=== PATIENT | male | born 1985 | race Caucasian/White ===

== ENCOUNTER → 2017-10-14 01:26 | Outpatient (CLI) | payer BC, SELFPAY ==
--- NOTE | 2017-10-14 13:42 | MERGE_ITS ---
*[facility]* *[facility]* [address] [place] [address] Date of study: 10/14/2017 Transthoracic Echocardiography M-mode, complete 2D, complete spectral Doppler, and color Doppler *STUDY CONCLUSIONS* Summary: 1. Left ventricle: The cavity size was normal. Systolic function was normal. The estimated ejection fraction was 60-65%. Diastolic parameters were normal. There was no evidence of elevated ventricular filling pressure by Doppler parameters. 2. Aortic valve: There was mild regurgitation. 3. Mitral valve: There was mild regurgitation. 4. Right ventricle: The cavity size was normal. Wall thickness was normal. Systolic function was normal. 5. Right atrium: The atrium was mildly dilated. 6. Atrial septum: No defect or patent foramen ovale was identified. 7. Pulmonary arteries: Pulmonary systolic pressure was in the range of 25mm Hg to 35mm Hg. 8. Inferior vena cava: The vessel was patent and normal in size. The respirophasic diameter changes were in the normal range (greater than or equal to 50%). *PATIENT PRESENTATION* Height: 188cm ((74in) ) S/D Pressure: 124 / 71 Weight: 90.7kg ((199.6lb) ) BSA: 2.17m^2 Test start time: 01:58 PM. Test stop time: 02:47 PM. PERFORMING Unknown ORDERING Fabiana Ford REFERRING Fabiana Ford PERFORMING [facility] GROUP LEADER SEMICONDUCTOR TESTING RT Tang CardenasR)(TARA)MAGDI *PROCEDURE DATA* Procedure information: The patient was identified by two identifiers. This study was interpreted by [facility]. Pertinent images and digital data are archived for permanent storage and are available for subsequent review. No prior study was available for comparison. Study status: Routine. Transthoracic echocardiography. M-mode, complete 2D, complete spectral Doppler, and color Doppler. A Transthoracic Echocardiogram was performed. Scanning was performed from the parasternal, apical, subcostal, and suprasternal notch acoustic windows. Images were obtained using an [id number] cardiac ultrasound machine. Image quality was good. Study completion: The patient tolerated the procedure well. History: PMH: Cardiomyopathy. *CARDIAC ANATOMY* Left ventricle: The cavity size was normal. Systolic function was normal. The estimated ejection fraction was 60-65%. The tissue Doppler parameters were normal. Diastolic parameters were normal. There was no evidence of elevated ventricular filling pressure by Doppler parameters. Aortic valve: Trileaflet. Doppler: There was no stenosis. There was mild regurgitation. VTI ratio of LVOT to aortic valve: 0.82. Valve area (VTI): 3.2cm^2. Indexed valve area (VTI): 1.5cm^2/m^2. Peak velocity ratio of LVOT to aortic valve: 0.83. Valve area (Vmax): 3.3cm^2. Indexed valve area (Vmax): 1.5cm^2/m^2. Mean velocity ratio of LVOT to aortic valve: 0.69. Valve area (Vmean): 2.7cm^2. Indexed valve area (Vmean): 1.3cm^2/m^2. Mean gradient (S): 4.1mm Hg. Peak gradient (S): 6.8mm Hg. Aorta: Aortic root: The aortic root was mildly dilated. Ascending aorta: The ascending aorta was normal in size. Mitral valve: Doppler: There was no evidence for stenosis. There was mild regurgitation. Valve area by pressure half-time: 3.9cm^2. Indexed valve area by pressure half-time: 1.8cm^2/m^2. Peak gradient (D): 2.4mm Hg. Left atrium: The atrium was normal in size. Atrial septum: No defect or patent foramen ovale was identified. Right ventricle: The cavity size was normal. Wall thickness was normal. Systolic function was normal. Pulmonic valve: Doppler: There was no evidence for stenosis. There was mild regurgitation. Peak gradient (S): 2.8mm Hg. Tricuspid valve: Doppler: There was mild regurgitation. Pulmonary artery: Poorly visualized. Pulmonary systolic pressure was in the range of 25mm Hg to 35mm Hg. Right atrium: The atrium was mildly dilated. Pericardium: There was no pericardial effusion. Systemic veins: Inferior vena cava: Well visualized. The vessel was patent and normal in size. The respirophasic diameter changes were in the normal range (greater than or equal to 50%). Baseline ECG: Bradycardia. Measurements Left ventricle Value Reference LV ID, ED, PLAX 5.8 cm 3.5 - 6.0 LV ID, ES, PLAX (H) 4.1 cm 2.1 - 4.0 LV PW thickness, ED, PLAX 0.9 cm LV end-diastolic volume, 1-p A2C 149 ml LV ejection fraction, 1-p A2C 57 % LV end-diastolic volume, 1-p A4C 206 ml LV ejection fraction, 1-p A4C 62 % LV e', lateral 0.175 m/sec LV E/e', lateral 4 LV e', medial 0.096 m/sec LV E/e', medial 8 LV e', average 0.135 m/sec LV E/e', average 6 Ventricular septum Value Reference IVS thickness, ED, PLAX 0.9 cm LVOT Value Reference LVOT ID, A-P 2.2 cm LVOT area 3.9 cm^2 LVOT peak velocity, S 1.09 m/sec LVOT mean velocity, S 0.68 m/sec LVOT VTI, S 26.2 cm LVOT peak gradient, S 4.7 mm Hg LVOT mean gradient, S 2.2 mm Hg Stroke volume (SV), LVOT DP 103 ml Stroke index (SV/bsa), LVOT DP 47 ml/m^2 Aortic valve Value Reference Aortic valve peak velocity, S 1.3 m/sec Aortic valve mean velocity, S 0.97 m/sec Aortic valve VTI, S 31.8 cm Aortic mean gradient, S 4.1 mm Hg Aortic peak gradient, S 6.8 mm Hg VTI ratio, LVOT/AV 0.82 Aortic valve area, VTI 3.2 cm^2 Velocity ratio, peak, LVOT/AV 0.83 Aortic valve area, peak velocity 3.3 cm^2 Velocity ratio, mean, LVOT/AV 0.69 Aortic valve area, mean velocity 2.7 cm^2 Aortic valve area/bsa, mean velocity 1.3 cm^2/m^2 Aortic regurg velocity, ED 2.47 m/sec Aortic regurg gradient, ED 24.4 mm Hg Aorta Value Reference Aortic root ID, ED 4.1 cm Ascending aorta ID, A-P, S 3.3 cm RVOT Value Reference RVOT VTI, S 21.5 cm Left atrium Value Reference LA ID, A-P, ES 3.0 cm LA ID/bsa, A-P 1.4 cm/m^2 <=2.2 LA area, ES, A4C 21.9 cm^2 8.8 - 23.4 LA area, ES, A2C 24 cm^2 LA volume/bsa, ES, 1-p A4C 35 ml/m^2 LA volume, ES, 2-p 74 ml LA volume/bsa, ES, 2-p 34 ml/m^2 LA/aortic root ratio 0.74 Mitral valve Value Reference Mitral E-wave peak velocity 0.77 m/sec Mitral A-wave peak velocity 0.34 m/sec Mitral deceleration time 194 ms 150 - 230 Mitral pressure half-time 56 ms Mitral peak gradient, D 2.4 mm Hg Mitral E/A ratio, peak 2.28 Mitral valve area, PHT, DP 3.9 cm^2 Pulmonary veins Value Reference Pulmonary vein peak velocity, S 0.67 m/sec Pulmonary vein peak velocity, D 0.52 m/sec Pulmonary vein velocity ratio, peak, 1.29 S/D Pulmonary vein A-wave reversal peak 0.23 m/sec velocity Pulmonary vein A-wave reversal 128 ms duration Tricuspid valve Value Reference Tricuspid regurg peak velocity 2.6 m/sec Tricuspid peak RV-RA gradient 26.4 mm Hg Right atrium Value Reference RA area, ES, A4C (H) 20.9 cm^2 8.3 - 19.5 Pulmonic valve Value Reference Pulmonic peak gradient, S 2.8 mm Hg Legend: (L) and (H) bhavesh values outside specified reference range. I have personally reviewed the images and have reviewed and edited the reported findings. Electronically signed by Basilio Piña MD 10/14/2017 16:39
== END ==
PROVIDERS: PCP Family Medicine; Visit Provider Family Medicine
DX: I42.9 Cardiomyopathy, unspecified (principal)
CPT/HCPCS: 93306

== ENCOUNTER 2022-04-23 12:34 | Outpatient (REF) | payer BC, SELFPAY ==
[2022-04-23 15:06] LABS: Calculated LDL 106 mg/dL (<100); Cholesterol 165 mg/dL (<200); HDL Cholesterol 50 mg/dL (40-60); Triglyceride 46 mg/dL (<150)
== END 2022-04-23 12:35 | disposition home or self-care (01) ==
LOC: NCHCN 12:34
PROVIDERS: PCP Family Medicine; Visit Provider Family Medicine
DX: E55.9 Vitamin D deficiency, unspecified (principal); Z00.00 Encounter for general adult medical examination without abnormal findings
CPT/HCPCS: 80061

== ENCOUNTER 2022-07-30 08:28 | Emergency (ER) | payer BC, SELFPAY ==
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
[2022-07-30 08:34] VITALS: BP 128/76; PULSE 65; RESP 18; TEMP 37; O2SAT 100
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
== END 2022-07-30 09:31 | disposition home or self-care (01) ==
PROVIDERS: Emergency Provider Physician Assistant; PCP Family Medicine
DX: S20.219A Contusion of unspecified front wall of thorax, initial encounter (principal); V19.3XXA Pedal cyclist (driver) (passenger) injured in unspecified nontraffic accident, initial encounter
CPT/HCPCS: 99283; 71046

== ENCOUNTER 2022-11-05 09:30 | Outpatient (REF) | payer BC, SELFPAY ==
[2022-11-05 16:06] LABS: Abs Immature Grans 0.02 10^3/uL (0.0-0.06); Absolute Basophil Count 0.03 10^3/uL (0.0-0.2); Absolute Eosinophil Count 0.15 10^3/uL (0.0-0.7); Absolute Monocyte Count 0.78 10^3/uL (0.1-0.8); Absolute Neutrophil Count 5.77 10^3/uL (1.2-6.7); Basophils % 0.4; Eosinophils % 1.8; HCT 42.2 % (40.0-50.0); HGB 14.1 g/dL (13.5-17.5); Immature Grans % 0.2; Lymphocytes % 21.1; MCH 28.4 pg (27.0-33.0); MCHC 33.4 % (32.0-36.0); MCV 85 fL (80-95); Monocytes % 9.1; Neutrophils % 67.4; Platelet Count 129 10^3/uL (130-400); RBC 4.97 10^6/uL (4.36-5.78); RDW-SD 36.9 fL; WBC 8.55 10^3/uL (4.4-10.8)
[2022-11-05 16:44] LABS: C-Reactive Protein 0.29 mg/dL (0.0-0.3); Uric Acid 5.1 mg/dL (3.5-7.2)
[2022-11-06 10:58] LABS: Lyme Ab w Rflx to Lyme Confirm Negative (Negative)
== END 2022-11-05 09:31 | disposition home or self-care (01) ==
LOC: LBN 09:30
PROVIDERS: PCP Family Medicine; Visit Provider Nurse Practitioner Family
DX: M25.522 Pain in left elbow (principal); W57.XXXA Bitten or stung by nonvenomous insect and other nonvenomous arthropods, initial encounter
CPT/HCPCS: 84550; 85025; 86140; 86618

== ENCOUNTER 2023-11-12 15:25 | Outpatient (CLI) | payer BC, SELFPAY ==
--- NOTE | 2023-11-12 09:36 | DI.RAD_ITS ---
Exam(s) XR HIP RT COMPLETE AP PELVIS XR STANDING ALIGNMENT EXAM: XR HIP RT COMPLETE AP PELVIS and XR standing alignment CLINICAL HISTORY: right hip pain. TECHNIQUE: 2D digital imaging was performed. Seven images were obtained. COMPARISON: No priors for comparison. FINDINGS: BONES: The right hip joint is well maintained. Calcifications are seen in the soft tissues adjacent to both greater trochanters which have a benign appearance. There are 2 tiny well corticated chronic appearing densities adjacent to the superior right acetabulum. The sacroiliac joints and symphysis pubis are unremarkable. Note is made of multipartite patella bilaterally. These are normal variants . The knees are otherwise well maintained. The ankles are well maintained.There is no significant l eg length discrepancy. SOFT TISSUE: Normal. IMPRESSION: 1. Soft tissue calcifications adjacent to the hips bilaterally as described above. The joint spaces are otherwise well maintained. 2. The knees are well maintained. 3. No significant leg length discrepancy. DATA REPOSITORY: RADIATION DOSE DELIVERED:
== END 2023-11-12 15:26 | disposition home or self-care (01) ==
LOC: DIORS 15:25
PROVIDERS: PCP Family Medicine; Visit Provider Student in an Organized Health Care Education/Training Program
DX: M25.851 Other specified joint disorders, right hip (principal)
CPT/HCPCS: 73502; 77073

== ENCOUNTER 2023-12-31 01:59 | Outpatient (CLI) | payer BC, SELFPAY ==
[2023-12-31 16:13] LABS: Abs Immature Grans 0.04 10^3/uL (0.0-0.06); Absolute Basophil Count 0.03 10^3/uL (0.0-0.2); Absolute Eosinophil Count 0.08 10^3/uL (0.0-0.7); Absolute Lymphocyte Count 1.61 10^3/uL (1.2-3.4); Absolute Monocyte Count 0.55 10^3/uL (0.1-0.8); Basophils % 0.3 %; Eosinophils % 0.9 %; HCT 42.2 % (40.0-50.0); HGB 14.1 g/dL (13.5-17.5); Immature Grans % 0.4 %; Lymphocytes % 18.1 %; MCH 28.5 pg (27.0-33.0); MCHC 33.4 % (32.0-36.0); MCV 85 fL (80-95); MPV 10.8 fL (8.0-11.0); Monocytes % 6.2 %; Neutrophils % 74.1 %; Platelet Count 129 10^3/uL (130-400); RBC 4.94 10^6/uL (4.36-5.78); RDW 11.8 % (11.8-14.1); RDW-SD 36.3 fL; WBC 8.91 10^3/uL (4.4-10.8)
[2023-12-31 17:40] LABS: ALT 19 U/L (16-63); AST 28 U/L (15-37); Albumin 4.3 g/dL (3.4-5.0); Alkaline Phosphatase 63 U/L (46-116); Anion Gap 10.6 mmol/L (3-11); BUN 22 mg/dL (7-18); Bilirubin, Total 1.17 mg/dL (0.2-1.0); CO2 28.4 mmol/L (21.0-32.0); CREATININE 1.1 mg/dL (0.70-1.30); Calcium 9.5 mg/dL (8.5-10.1); Calculated LDL 113 mg/dL (<100); Chloride 103 mmol/L (98-107); Cholesterol 185 mg/dL (<200); Estimated GFR 88.12 (mL/min/1.73m2); Glucose 83 mg/dL (74-106); HDL Cholesterol 65 mg/dL (40-60); Potassium 3.7 mmol/L (3.5-5.1); Sodium 142 mmol/L (136-145); Total Protein 7.7 g/dL (6.4-8.2); Triglyceride 35 mg/dL (<150); Vitamin D 25 Total 31.8 ng/mL (30-100)
== END 2023-12-31 02:00 | disposition home or self-care (01) ==
LOC: LBO 02:00
PROVIDERS: PCP Family Medicine; Visit Provider Family Medicine
DX: Z00.00 Encounter for general adult medical examination without abnormal findings (principal)
CPT/HCPCS: 36415; 80053; 80061; 82306; 85025

== ENCOUNTER 2024-01-27 22:00 | Emergency (ER) | payer BC, SELFPAY ==
[2024-01-27 22:19] VITALS: BP 138/84; PULSE 55; RESP 16; TEMP 37.1; O2SAT 99
--- OUTSIDE RECORDS SUMMARY | 2024-01-27 22:19 | XMS_ITS | Encounter Summary ---
Author Organization [facility] Address [facility] [place] [address] Care Team Providers Care Laboratory Mechanic Helper Name Role Phone Fabiana Ford MD Primary Care Provider [phone] Encounter Details Date Type Department Care Team (Late st Contact Info) Description 12/14/2020 8:00 AM EDT TH Visit (TeleHealth) Plastic Surgery at [facility] [address] [place] [address] Basilio Payan MD [facility] [place] [address] Surgery follow-up Social History Tobacco Use Types Packs/Day Years Used Date Smoking Tobacco: Never Smokeless Tobacco: Never Alcohol Use Standard Drinks/Week Comments Yes 0 (1 standard drink = 0.6 oz pur e alcohol) rare, on avg 1 a month Sex and Gender Information Value Date Recorded Sex Assigned at Not on file Gender Identity Not on file Sexual Orientation Not on file documented as of this encounter Progress Notes * Geraldine Abad H - 12/14/2020 8:00 AM EDT Plastic Surgery Post Op Note (Via telehealth) Basilio Payan M.D. Reason for visit: F/U status post procedure Date of surgery: 01/18/2020 Procedure(s): residual open wound at the thumb closure with Dr. Payan Complications: None reported Reason for visit: F/U status post procedure Date of surgery: 12/10/2019 Procedure(s): left thumb,index and long finger amputation revisions with Dr. Payan. Complications: None reported ?? HPI: Pt returns to clinic for a follow up visit s/p left thumb,index and long finger amputation revisions and wound closure to left thumb via telehealth. His primary focus at today's visit is to decide whether or not he would like to proceed with excision of bothersome neuromas left thumb and indexfinger. He states that when he accidentally hits his effected fingers this can be painful and very sensitive. Examination: (From last visit) Patient is alert, conversant, comfortable, ambulating Incision: CDI, healed well, fully healed. No signs or concerns for infection. No collection, minimal erythema, no evidence of cellulitis. AROM now full of remaining digits. Tinel's at tips index/thumb in area of distal n/v bundles with small 3mm subcutaneous masses c/w neuromas Impression: Yevgeniy Bradley is a 35 y.o. male who was seen today for follow-up after the above procedure. Please see the operative note for details. Patient with painful neuromas requesting surgical intervention/excision. Discussed in detail with patient the surgical plan and technique. He would like to proceed with surgery sometime in February. Surgical Grid Surgeon: Schuyler Duration: 60 min Timeframe: February Procedure: excision of neuroma CPT: 96754 Surgical site: thumb,index Side: left Anesthesia: General Follow up: 7 Days THHF: Y/N: no H&P: no Plan: Proceed with excision of neuromas, left thumb and index finger Follow up one week post op Geraldine Wan, have performed the documentation for this encounter in the presence of and acting as a scribe for Basilio Payan MD. documented in this encounter Plan of Treatment Not on file documented as of this encounter Visit Diagnoses Diagnosis Surgery follow-up Follow-up examination, following unspecified surgery documented in this encounter Care Teams Laboratory Mechanic Helper Relationship Specialty Start Date End Date Fabiana Ford MD [address] [place] [address] PCP - General Family Medicine 12/16/19 documented as of this encounter
--- OUTSIDE RECORDS SUMMARY | 2024-01-27 22:19 | XMS_ITS | Encounter Summary ---
Author Organization [facility] Address [address] [place] [address] Care Team Providers Care Manager Molecular Name Role Phone Unavailable Primary Care Provider Unavailabl e Encounter Details Date Type Department Care Team (Late st Contact Info) Description 01/05/2006 Office Visit [facility] [address] [place] [address] Emiliano Acevedo MD [address] [place], [place] [id number] Social History Tobacco Use Types Packs/Day Years Used Date Smoking Tobacco: Never Assessed Sex and Gender Information Value Date Recorded Sex Assigned at Not on file Legal Sex Male 18:20 EST Gender Identity Not on file Sexual Orientation Not on file documented as of this encounter Progress Notes * Emiliano Acevedo MD - 05/04/2009 1934 EST Department - Physician Summary Registration Date/Time: 01/05/2006 8:29 Arrived- By private vehicle. HISTORY OF PRESENT ILLNESS Chief Complaint: JAW PAIN. This started yesterday and is still present. It was abrupt in onset. Pain described as mild. He has had jaw pain (tightness, unable to fully open without pain. Feels like it is catching). No sore throat, mouth sores, nasal discharge or congestion or ear pain. No toothache, swollen jaw or face or facial pain. (Pt was eating cereal yesterday when jaw locked up while opening mouth. Since that time has had jaw tightness with inablility to fully open without pain. No fever. Pt was vaccinated as a child and thinks his dT is up to date. No trauma. Pt has no pain as long as he does not open mouth, Pt has a hx of jaw cracking. No sore throator difficulty swallowing. No other muscle twitching). The patient has had similar symptoms many times previously. These were milder. The patient was seen recently in the office (prescribed ibuprofin 800 TID. spoke with oral surg Dr Snow and has an apt in [place]). REVIEW OF SYSTEMS No fever, eye discomfort, cough, difficulty breathing or chest pain. No nausea, diarrhea, abdominalpain, difficulty with urination or headache. No fainting episodes or vomiting. PAST HISTORY Negative. Medications: The patient's medications have been reviewed. Allergies: The patient's allergies have been reviewed. SOCIAL HISTORY Nonsmoker. No alcohol use. ADDITIONAL NOTES The nursing notes have been reviewed. PHYSICAL EXAM Appearance: Alert. No acute distress. Head: Normal external inspection. Eyes: Pupils equal, round and reactive to light. Conjunctivae andeyelids normal. ENT: Mild trismus present. Pharynx normal. Lips normal. Gums normal. ( No sublingual masses or fullness, uvula midline. ). No mouth ulcerations, tonsillar exudate, peritonsillar mass, muffled or hoarse voice or drooling. Neck: Normal inspection. Trachea midline. No adenopathy. Thyroid normal. Neck supple. CVS: Normal heart rate and rhythm. Heart sounds normal. Respiratory: No respiratory distress. Breath sounds normal. Skin: Normal skin color and turgor. No rash. PROGRESS AND PROCEDURES Disposition: Condition: good. Discharged home. CLINICAL IMPRESSION TMJ syndrome . INSTRUCTIONS Continue ibuprofin. Call your family doctor to follow up on the date of your last tetanus shot. If more than 10 years you needto be reevaluated. Soft diet. Prescription Medications: Valium 5 mg: Take 1 tablet orally every 8 hours as needed for muscle spasm. Dispense fifteen (15). No refills. Generic substitute OK. Follow-up: Follow up with your doctor Saturday if not better. (Electronically signed by Emiliano Acevedo M.D. 01/05/2006 9:37) Department - Nursing Summary Registration Date/Time: 01/05/2006 8:29 TRIAGE Initial Assessment Triage time 08:31 . Acuity: LEVEL 3. BP: 159 / 79. HR: 76. RR: 16. Temp: 36.4 C (tympanic). --832 Ariadna Marvin R.N. Medications ( ibuprofen). --832 Ariadna Marvin R.N. Allergies No known drug allergies. --08 Ariadna Marvin R.N. History Chief Complaint: ( jaw locked up 2 days ago with painful movement and stiffness). Pain level now: 0/10. 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 PAST HX: ( fx right leg in past). SOCIAL HX: Nonsmoker. No alcohol use. No report of abuse. Historian: patient. Arrived by private vehicle. --832 Ariadna Marvin R.N. Interventions To room. --08 Ariadna Marvin R.N. NURSING PROGRESS NOTES Progress Patient identifiers checked. Call light placed in reach. Bed placed in lowest position. Brakes of bed on. --832 Ariadna Marvin R.N. DISPOSITION / DISCHARGE Discharge instructions reviewed with the patient. Reviewed medication. Patient verbalized understanding. Written instructions provided in [place]. The patient was discharged home. The patient left the Emergency Department ambulatory and via private vehicle. --09 Nando Lui R.N., L.P.N. Locked/Released at 01/05/2006 9:00 by Jessica Treviño L.P.N. documented in this encounter Plan of Treatment Not on file documented as of this encounter Visit Diagnoses Not on filedocumented in this encounter
--- OUTSIDE RECORDS SUMMARY | 2024-01-27 22:19 | XMS_ITS | Encounter Summary ---
Author Organization [facility] [place] [address] Care Team Providers Care Custodial Maintenance Worker Name Role Phone Fabiana Ford MD Primary Care Provider [phone] Reason for Visit * Auth/Cert Specialty Diagnoses / Procedures Referred By Contac t Referred To Contact Diagnoses wound Procedures PRO ADJ TISS XFER HEAD, FAC, HAND 10.1-30 ADJ.TISSUE TRANSFER, REARRANGEMENT, 10.1 TO 30 SQ.CM, HANDS (WRVU 10.83) Referral ID Status Reason Start Date Expiration Date Visits Re quested Visits Authorized [id number] 1 1 Encounter Details Date Type Department Care Team (Late st Contact Info) Description 01/18/2020 1:11 PM EST Anesthesia Event [facility] [address] Boris Thompson DO [facility] [place] [address] Darwin Borjas MD [facility] [place] [address] Anesthesia Record Procedure Summary Procedure Name Responsible Anesthesiologist Anesthesia Start Time Anesthesia Stop Time ADJ.TISSUE TRANSFER, REARRANGEMENT, 10.1 TO 30 SQ.CM, HANDS (WRVU 10.83) (Left: Hand) Boris Thompson DO 01/18/20 1311 01/18/20 1404 Events Date Time Event Comment 01/18/2020 1302 1311 Start 1313 AN Verify 1313 An Start Data 1315 An Induction 1317 An Intubation 1318 Anesthesia Ready 1324 Procedure Start 1400 an stop data 1403 Recovery or ICU Handoff Odalis ent care was transferred to the destination unit staff after review of the patient's medical history, current anesthetic/surgical status and plan, according to the Provider Handoff Checklist. 1404 Stop Meds Name Total Propofol 200 mg Propofol INF 159.41 mg fentaNYL 100 mcg Midazolam 2 mg IV Lidocaine 60 mg Dexamethasone 8 mg Ondansetron 8 mg ceFAZolin 2 g ketorolac (Toradol) (30 mg/mL) injection 30 mg lactated ringers infusion 900 mL * Agents Name O2 Air N2O Sevoflurane (et) * Blood No blood administrations on file. Lines, Drains, and Airways Type Details Placement Removal Supraglottic Mask Ventilation: Ea sy (1); LMA Type: iGel; LMA Size: 4; Inserted by: SHAUN 01/18/20 1322 by Carolyn Spence CRNA (RETIRED) Peripheral IV Line - Single Lumen 12/10/19; 1607; median cubital vein (antecubital fossa), right; [id number] catheter system; 22 gauge; 12/14/20 (LDA Cleanup utility RA#[id number]); 1650 (LDA Cleanup utility RA#[id number]) 12/10/19 1607 by Elizabeth Morales RN 12/14/20 1650 by Bebo Silva Incision 12/10/19; 1845; hand (first, second and third finger, ); 11/06/21 (LDA cleanup utility RA#[id number]); 1715 (LDA cleanup utility RA#[id number]) 12/10/19 1845 by Bisi Lombardi RN 11/06/21 1715 by Amna Torres (RETIRED) Peripheral IV Line - Single Lumen 01/18/20; 1306; metacarpal vein (top of hand), right; 22 gauge, 1 in length; Carolyn Lira CRNA; intradermal injection, distraction, tolerated well; 2; Location1: (select this item first), metacarpal vein (top of hand), right, basilic vein (medial side of arm), right; 01/18/20; 1444 01/18/20 1306 by Araceli Boykin RN 01/18/20 1444 by Shayy Crabtree RN Incision 01/18/20; 1328; thum b; 11/06/21 (LDA cleanup utility RA#[id number]); 1715 (LDA cleanup utility RA#[id number]) 01/18/20 1328 by Merle Mike RN 11/06/21 1715 by Amna Torres documented in this encounter Social History Tobacco Use Types Packs/Day Years [...] on file documented as of this encounter OR Notes * Anesthesia Postprocedure Evaluation - Boris Thompson DO - 01/18/2020 5:18 PM EST Department of Anesthesiology Post-procedure Note Patient: Yevgeniy Bradley Procedure Summary Date: 01/18/20 Room / Location: [facility] [address] [place] [address] OSC Anesthesia Start: 1311 Anesthesia Stop: 140 Procedure: ADJ.TISSUE TRANSFER, REARRANGEMENT, 10.1 TO 30 SQ.CM, HANDS (WRVU 10.83) (Left Hand) Diagnosis: (wound) Surgeon: Basilio Payan MD Responsible Provider: Boris Thompson DO Anesthesia Type: general ASA Status: 2 All Anesthesia Providers: Anesthesiologist: Borsi Thompson DO TOWBOAT PILOT: Carolyn Spence CRNA Vitals Value Taken Time BP 127/77 01/18/20 1445 Temp 36 ??C (96.8 ??F) 01/18/20 1401 Pulse 62 01/18/20 1445 Resp 16 01/18/20 1401 SpO2 100 % 01/18/20 1445 Pain Level 0 01/18/20 1445 Patient Location: PACU/[facility] Level of Consciousness: Awake and Alert Pain Management: Satisfactory Analgesia PONV: None Cardiovascular Status: At Baseline and Hemodynamically Stable Respiratory Status: At Baseline and Room Air Postoperative Fluid Status: Intravascular EUvolemia Possible Anesthetic Complications: NONE apparent at time of evaluation Final Primary Anesthesia Type: General (The anesthetic type performed was the same as planned.) Comments: Boris Thompson DO * Anesthesia Preprocedure Evaluation - Boris Thompson DO - 01/18/2020 8:17 AM EST Pre-Anesthesia Evaluation for: Yevgeniy Bradley a 34 y.o. male. Procedure(s): AMPUTATION, FINGER OR THUMB, 1?? OR 2??, ANY JOINT OR PHALANX, SINGLE, W/ FLAPS (WRVU 6.48) There are no active problems to display for this patient. No past medical history on file. Past Surgical History: Procedure Laterality Date ??? PRO AMPUTATION FINGER/THUMB+FLAPS Left 12/10/2019 AMPUTATION, FINGER OR THUMB, 1?? OR 2??, ANY JOINT OR PHALANX, SINGLE, W/ FLAPS (WRVU 6.48) performed by Basilio Payan MD at [facility] Social History Tobacco Use ??? Smoking status: Never Smoker ??? Smokeless tobacco: Never Used Substance Use Topics ??? Alcohol use: Not on file Social History Substance and Sexual Activity Drug Use Not on file No Known Allergies Medications: MAR and/or home medications have been reviewed. Physical Exam: No data found. There is no height or weight on file to calculate BMI. Airway Assessment: Mallampati: I TM distance: >3 FB Neck ROM: full Cardiovascular Assessment: cardiovascular exam normal Pulmonary Assessment: pulmonary exam normal Dental Assessment: - normal exam Misc Assessment: Patient is wearing No contact(s). IV access: Peripheral line Anesthesia Plan: ASA 2 general, with a(n) intravenous induction 34 y.o. 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 Here today for Tissue Rearrangement for wound No hx of difficulty w anesthesia x nausea (hx of motion sickness) Allergies reviewed Labs reviewed NPO Status: --- Appropriately NPO Denies CP/SOB/GERD/Recent illness or exposure to COVID19 Appears and feels well today Plan GA/LMA/DENISHA/VA and IV maint/p op pacu care and IV pain control as needed w local provided by surgical service. Antiemetics including a scop patch (SE profile discussed) The patient was informed of the risks, benefits and alternatives of anesthesia. These risks included, but were not limited to, post-operative nausea and/or vomiting, pain, sore throat, dental/lip trauma, and other rare but serious complications such as major organ damage, awareness, severe allergicreactions, position-related nerve injuries, and need blood transfusions. All questions were sought and answered. Consent was signed and placed in chart. Region - Other Informed Consent: Anesthetic plan and risks discussed with patient. Plan discussed with TOWBOAT PILOT. PAT Clinic Note documented in this encounter Plan of Treatment Not on file documented as of this encounter Visit Diagnoses Not on filedocumented in this encounter Administered Medications Inactive Administered Medications - up to 3 most recent administrations Medication Order MAR Action Action Date Dose Rate Site ceFAZolin (Ancef) 1 g in dextrose 5% 50 mL infusion PRN, Starting on Sat01/18/20 at 1325, Until Sat01/18/20 at 1409, Administer over 30 Minutes, Anesthesia Intra-op Given 01/18/2020 1:25 PM EST 2 g dexamethasone (Decadron) injection Intravenous, PRN, Starting on Sat01/18/20 at 1321, Until Sat01/18/20 at 1409, Anesthesia Intra-op, Routine Given 01/18/2020 1:21 PM EST 8 mg fentaNYL 50 mcg/mL multi-dose injection Intravenous, PRN, Starting on Sat01/18/20 at 1317, Until Sat01/18/20 at 1409, Anesthesia Intra-op, Routine Given 01/18/2020 1:27 PM EST 50 mcg Given 01/18/2020 1:17 PM EST 25 mcg Given 01/18/2020 1:13 PM EST 25 mcg ketorolac (Toradol) (30 mg/mL) injection PRN, Starting on Sat01/18/20 at 1357, Until Sat01/18/20 at 1409, Anesthesia Intra-op, Routine Given 01/18/2020 1:57 PM EST 30 mg lactated ringers infusion 1,000 mL, at 100 mL/hr, Intravenous, CONTINUOUS, Starting on Sat01/18/20 at 1245, Until Sat01/18/20 at 1705, Day of Surgery (Day of Procedure) New Bag 01/18/2020 12:57 PM EST lidocaine (PF) (XYLOCAINE) 100 mg/5 mL (2 %) injection Intravenous, PRN, Starting on Sat01/18/20 at 1315, Until Sat01/18/20 at 1409, Anesthesia Intra-op, Routine Given 01/18/2020 1:15 PM EST 60 mg midazolam (PF) (VERSED) multi-dose injection Intravenous, PRN, Starting on Sat01/18/20 at 1313, Until Sat01/18/20 at 1409, Anesthesia Intra-op, Routine Given 01/18/2020 1:13 PM EST 2 mg ondansetron (ZOFRAN) injection Intravenous, PRN, Starting on Sat01/18/20 at 1357, Until Sat01/18/20 at 1409, Anesthesia Intra-op, Routine Given 01/18/2020 1:57 PM EST 8 mg propofoL (Diprivan) 10 mg/mL bolus injection (Anesthesia) Intravenous, PRN, Starting on Sat01/18/20 at 1317, Until Sat01/18/20 at 1409, Anesthesia Intra-op Given 01/18/2020 1:17 PM EST 200 mg propofoL (Diprivan) infusion Intravenous, CONTINUOUS PRN, Starting on Sat01/18/20 at 1319, Until Sat01/18/20 at 1409, Anesthesia Intra-op, Routine New Bag 01/18/2020 1:19 PM EST 50 mcg/kg/min 25.2 mL/hr documented in this encounter Care Teams Custodial Maintenance Worker Relationship Specialty Start Date End Date Fabiana Ford MD [address] [place] [address] PCP - General Family Medicine 12/16/19 documented as of this encounter
--- OUTSIDE RECORDS SUMMARY | 2024-01-27 22:19 | XMS_ITS | Encounter Summary ---
Author Organization [facility] [place] [address] Care Team Providers Care Radio Dispatcher Name Role Phone Fabiana Ford MD Primary Care Provider [phone] Encounter Details Date Type Department Care Team (Late st Contact Info) Description 06/22/2020 Telephone [place] [id number] Geraldine Abad Social History Tobacco Use Types Packs/Day Years [...] on file documented as of this encounter Miscellaneous Notes * Telephone Encounter - Geraldine Abad - 06/22/2020 1:21 PM EDT LM for patient alerting him that I have faxed over the referral to [facility]. They will reach outto him to set up a meeting to discuss finger prosthetics. 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 documented in this encounter Plan of Treatment Not on file documented as of this encounter Visit Diagnoses Not on filedocumented in this encounter Care Teams Radio Dispatcher Relationship Specialty Start Date End Date Fabiana Ford MD [address] [place] [address] PCP - General Family Medicine 12/16/19 documented as of this encounter
--- OUTSIDE RECORDS SUMMARY | 2024-01-27 22:19 | XMS_ITS | Encounter Summary ---
Author Organization [facility] [place] [address] Care Team Providers Care Adjutant General Name Role Phone Fabiana Ford MD Primary Care Provider [phone] Reason for Referral * Occupational Therapy (Routine) - Closed Specialty Diagnoses / Procedures Referred By Leonardo avalos Referred To Contact Diagnoses Traumatic amputation of finger, subsequent encounter Surgery follow-up Basilio Payan MD [facility] [place] [address] Unknown None Referral ID Status Reason Start Date Expiration Date V isits Requested Visits Authorized [id number] Closed Evaluate and Treat Non PCP 01/01/2020 06/29/2020 12 12 Encounter Details Date Type Department Care Team (Late st Contact Info) Description 01/01/2020 Orders [place] [address] Basilio Payan MD [facility] [place] [address] Traumatic amputation of finger, subsequent encounter; Surgery follow-up Social History Tobacco Use Types Packs/Day Years Used Date Smoking Tobacco: Never Smokeless Tobacco: Never Sex and Gender Information Value Date Recorded Sex Assigned at Not on file Gender Identity Not on file Sexual Orientation Not on file documented as of this encounter Plan of Treatment Scheduled Referrals Name Type Priority Associated Diagnoses Order Schedule Referral to Occupational Therapy Outpatient Referral Routine Traumatic amputation of finger, subsequent encounter Surgery follow-up Ordered: 01/01/2020 documented as of this encounter Visit Diagnoses Diagnosis Traumatic amputation of finger, subsequent encounter Surgery follow-up Follow-up examination, following unspecified surgery documented in this encounter Care Teams Adjutant General Relationship Specialty Start Date End Date Fabiana Ford MD [address] [place] [address] PCP - General Family Medicine 12/16/19 documented as of this encounter
--- OUTSIDE RECORDS SUMMARY | 2024-01-27 22:19 | XMS_ITS | Encounter Summary ---
Author Organization [facility] [place] [address] Care Team Providers Care Tutoring Manager Name Role Phone None Primary Care Provider Unavailabl e Encounter Details Date Type Department Care Team (Latest Contact Info) Description 12/10/2019 3:33 PM EDT - 12/10/2019 9:55 PM EDT Hospital [place] [id number] Basilio Payan MD [facility] [place] [address] Discharge Disposition: Home Social History Tobacco Use Types Packs/Day Years Used Date Smoking Tobacco: Never Assessed Sex and Gender Information Value Date Recorded Sex Assigned at Not on file Gender Identity Not on file Sexual Orientation Not on file documented as of this encounter Last Filed Vital Signs Vital Sign Reading Time Taken Comments Blood Pressure 131/84 12/10/2019 9:00 PM EDT Pulse 54 12/10/2019 9:00 PM EDT Temperature 36.3 ??C (97.3 ??F) 12/10/2019 9:00 PM ED T Respiratory Rate 18 12/10/2019 9:00 PM EDT Oxygen Saturation 96% 12/10/2019 9:00 PM EDT Inhaled Oxygen Concentration - - Weight 86.3 kg (190 lb 3.2 oz) 12/10/2019 3:54 P M EDT Height 188 cm (6' 2) 12/10/2019 3:54 PM EDT Body Mass Index 24.42 12/10/2019 3:54 PM EDT documented in this encounter Discharge Instructions * Patient Instructions* Basilio Alberto MD - 12/10/2019 7:52 PM EDT DISCHARGE INSTRUCTIONS WOUND CARE: Keep dressing clean dry and intact until seen for your postoperative visit in clinic. You must avoid sunlight exposure to your incision(s). Do not use any over the counter ointments on the incisions postoperatively unless instructed by your provider. SHOWERING: OK to shower after surgery except your left arm. Do not submerge your surgical site under water until cleared by your provider. MEDICATIONS: You should resume your home medications. You should continue your antibiotic (Keflex) until you have completed the whole course. ACTIVITIES: Minimize contact to affected area(s). No heavy lifting until seen by MD. No driving or operating heavy machinery when on narcotics. Keep left hand elevated to decrease swelling. DIET: Regular healthy diet. DO???S AND DON???TS FOR THE NEXT 6 WEEKS: Do not drive a motor vehicle for 1-2 weeks or until you can handle the steering wheel without discomfort. Do not drive while taking your narcotic. Do not smoke or be around anyone who smokes for 2 weeks after your surgery this is because smoking delays healing and can lead to infection. Do not lift more than 5 pounds for 6 weeks. Do not participate in strenuous activities such as running or aerobics for 6 weeks. Do resume walking at a gentle pace. Protect your incisions from the sun for 6 months to 1 year. CALL MD IF: - Your incision opens up. - You have signs of infection such as: - temperature over 100.4F or 38C - redness or warmth spreading away from the incision lines after the first 48 hours - yellow pus-like or foul smelling drainage larger than dime size from the incisions - increased swelling or pain During office hours: Saturday - Saturday 8am-5pm call [phone]. On weekends or after hours call [phone] and ask the hide cooking operator to page the plastic surgery resident contact centre supervisor. PAIN MEDICATION: You were given a prescription for a narcotic medication immediately following your surgery. Narcotics are prescribed for short-term use to help treat your pain. Surgical pain requiring narcotics willusually be greatly decreased 2-3 days after surgery & should be mild to absent by 10-14 days. We will prescribe a narcotic pain reliever for no longer than 1 week following your surgery. This will be determined by your surgeon. Narcotics do not reduce inflammation and it is inflammation that is usually a major cause of pain after surgery. Narcotics have many side effects such as constipation, lightheadedness, dizziness, sedation, confusion, nausea and vomiting. Driving and the use of alcohol are not recommended while you are using narcotic pain medications. Non-steroidal anti-inflammatories (NSAIDS) such as aspirin, Aleve and ibuprofen (Advil, Motrin) aremedications that reduce pain and inflammation. If you find your pain is not adequately controlled with the prescribed dose of your narcotic pain medication, Tylenol and NSAIDS may be used immediatly after surgery with your narcotic to help alleviate the pain caused by inflammation. As you progress through your post-operative period, your pain should decrease and the use of narcotic medications should be less necessary. To reduce your chance of side effects, it is recommended that you save your narcotic medication for nighttime use and switch to NSAIDS or Acetaminophen (Tylenol) during the day. Alternative means of pain relief such as rest and relaxation, positioning, as well as decreasing stimulants such as coffee, tea, soft drinks, and nicotine may also help to alleviate pain. If you continue to experience significant pain 4-5 days after your procedure, it may be necessary to be re-evaluated by your physician. Prescription Renewals: Narcotic renewals may be requested from 8am-4pm Saturday through Saturday by calling the clinic. Due to patient safety, narcotic renewals will not be honored after hours or on weekends. It is best to make your request 2-3 days before you run out of your medication as it will takeat least 24 hours for physician approval and nurse follow-up. Note that certain prescriptions, suchas Percocet, Oxycodone, Vicodin, & Hydrocodone can not be called in to a pharmacy and must be picked up or mailed to you. If mailed to you, expect 2-5 business days prior to arrival. CONTACT INFORMATION: During office hours (Saturday through Saturday 8 am to 5 pm): Call [phone]. On weekends or after hours: Call [phone] and ask the hide cooking operator to speak to the Plastic Surgery Resident on-call. FOLLOW-UP APPOINTMENTS: You follow-up appointment has been requested by not yet scheduled. You should have an appointment in - days in plastic surgery clinic. Please call [phone] if you have not received a phone call or letter with your appointment in a timely fashion. documented in this encounter Medications at Time of Discharge Medication Sig Dispensed Refills Start Date End Date acetaminophen (Tylenol) 500 mg Tablet Take 500 mg by mouth every 6 hours as needed for Pain. ibuprofen (Advil;Motrin) 400 mg Tablet Take 400 mg by mouth every 6 hours as needed for Pain. cephALEXin (Keflex) 500 mg Capsule Take 1 capsule by mouth 4 times daily. 40 capsule 12/19/2019 12/30/2019 oxyCODONE (Roxicodone) 5 mg Tablet Take 1 tablet by mouth every 4 hours as needed for Pain. 15 tablet 12/10/2019 12/30/2019 cephALEXin (KEFLEX) 500 mg Tablet Take 1 tablet by mouth 4 times daily. Take for a total of 7 days after surgery 12 tablet 12/10/2019 12/16/2019 cephALEXin (Keflex) 500 mg Capsule Take 1 capsule by mouth 4 times daily for 7 days. 28 capsule 12/08/2019 12/15/2019 oxyCODONE (Roxicodone) 5 mg Tablet Take 1 tablet by mouth every 4 hours as needed for Pain. No driving, no alcohol 10 tablet 12/08/2019 12/16/2019 documented as of this encounter H&P Notes * Basilio Alberto MD - 12/10/2019 3:53 PM EDT Patient Name: Yevgeniy Bradley Patient Age: 34 y.o. Birthdate: 1985 Admit date: 12/10/2019 Attending Physician: Basilio Payan MD Plastic Surgery Preoperative H&P: Patient Name: Yevgeniy Bradley Patient : 1985 Today's Date: 12/10/2019 Yevgeniy Bradley is a 34 y.o. male with left hand injury including amputations to left index and longfingers at the DIPJ and distal thumb amputation who presents today for revision amputations and possible local/regional flaps for wound coverage. No changes since last seen. No past medical history on file. No past surgical history on file. No family history on file. Social History Socioeconomic History ??? Marital status: Spouse name: Not on file ??? Number of children: Not on file ??? Years of education: Not on file ??? Highest education level: Not on file Occupational History ??? Not on file Social Needs ??? Financial resource strain: Not on file ??? Food insecurity Worry: Not on file Inability: Not on file ??? Transportation needs Medical: Not on file Non-medical: Not on file Tobacco Use ??? Smoking status: Not on file Substance and Sexual Activity ??? Alcohol use: Not on file ??? Drug use: Not on file ??? Sexual activity: Not on file Lifestyle ??? Physical activity Days per week: Not on file Minutes per session: Not on file ??? Stress: Not on file Relationships ??? Social connections Talks on phone: Not on file Gets together: Not on file Attends mandaen service: Not on file Active member of club or organization: Not on file Attends meetings of clubs or organizations: Not on file Relationship status: Not on file ??? Intimate partner violence Fear of current or ex partner: Not on file Emotionally abused: Not on file Physically abused: Not on file Forced sexual activity: Not on file Other Topics Concern ??? Not on file Social History Narrative ??? Not on file No Known Allergies Review of systems: As per HPI, otherwise non-contributory. Exam: General: NAD Resp: CTAB CV: normal rate, regular rhythm A/P: Yevgeniy Bradley is a 34 y.o. male with left hand injury including amputations to left index andlong fingers at the DIPJ and distal thumb amputation who presents today for revision amputations and possible local/regional flaps for wound coverage. No changes since last seen. - Proceed to OR. The risks, benefits and indications were reviewed with the patient and there remains an indication for surgery. Consent signed. - Preoperative abx ordered - Surgical site marked Basilio Alberto MD Plastic Surgery Resident documented in this encounter Miscellaneous Notes * Op Note - Basilio Payan MD - 12/10/2019 9:55 PM EDT [facility] [place] Patient Name: Yevgeniy Bradley : [id number] MR#: [id number] Case Date: 12/10/2019 Surgeon: Surgeon(s) and Role: * Basilio Payan MD - Primary * Basilio Albetro MD - Resident Preoperative diagnosis: Amputation of left thumb, index and long fingers Postoperative diagnosis: Amputation of left thumb, index and long fingers Procedure(s) (LRB): AMPUTATION, FINGER OR THUMB, 1?? OR 2??, ANY JOINT OR PHALANX, SINGLE, W/ FLAPS (WRVU 6.48) (Left) x3 Findings: Left thumb, index, and long finger revision amputations Anesthesia: General Estimated Blood Loss: * No values recorded between 12/10/2019 6:44 PM and 12/10/2019 7:36 PM * Specimens removed during surgery: None Drains: None Surgical Closure: Primary Closure - skin incision is completely closed without any wires, jameel, drains or other devices Disposition: awakened from anesthesia, extubated and taken to the recovery room in a stable condition, having suffered no apparent untoward event. Condition: doing well without problems (Please see the Surgical Encounter Summary for any Implant and Specimen details pertinent to this patient.) HPI/Surgical Indications: Yevgeniy Bradley ( ) is a 34 y.o. male who sustained table sawamputations to the left thumb, index, and long fingers requiring revision amputation for definitiveclosure. Procedure Description: The patient was identified and marked in the preoperative holding area. We reviewed the surgical plan and he wished to proceed. We reviewed the potential risks and complications. The patinet expressed understanding of the risks and wished to proceed. ?? The patient was brought to the operating room and positioned supine on the operating table with theleft arm out. Anesthetic monitors and SCDs were applied. General anesthesia was induced and a time-out was performed. Pre-operative antibiotics were administered. A tourniquet was placed and the arm was prepped and draped in the usual sterile fashion. ?? 10 ml of 0.25% marcaine was administered as a digital block to the thumb, index, and long fingers. The fingers were all irrigated with copious amounts on saline. Attention was first brought to the index finger. All visible foreign material and devitalized tissue was removed. A finger tourniquet wasapplied. The tip of the finger including the entire nail bed and eponychial fold were amputated duri ng the trauma and did not require further removal. The distal phalanx were debrided back using a rongeur. The neurovascular bundles both radialy and ulnarly were dissected proximally and transected. The tourniquet was removed. There was no significant bleeding. The skin was then tailors for a rounded closure, and the wound was then closed using 4-0 chromic suture. The exact same steps were were performed for the long finger. Attention was then brought to the left thumb injury. All visible foreign material was removed. A finger tourniquet was applied. The tip of the finger including the entirenail bed and eponychial fold was then excised, leaving a small volar flap. The distal phalanx was mi nimally debrided back using a rongeur. The tourniquet was removed. There was no significant bleeding. The skin was tailored for a rounded closure, and the wound was then closed using 4-0 chromic suture. Bacitracin ointment and adaptic and a soft dressing was applied. The patient tolerated the procedure well. ?? Infection Bundle used? No Attestation: Case Date: 12/10/2019 I was present and I participated during the entire procedure (does not need to include opening and closing). Basilio Payan MD 12/13/2019 * Brief Op Note - Basilio Payan MD - 12/10/2019 7:48 PM EDT Brief Operative Note Patient Name: Yevgeniy Bradley : [id number] MR#: [id number] Case Date: 12/10/2019 Surgeon: Surgeon(s) and Role: * Basilio Payan MD - Primary * Basilio Alberto MD - Resident Preoperative diagnosis: Amputation of left thumb, index and long fingers Postoperative diagnosis: Amputation of left thumb, index and long fingers Procedure(s) (LRB): AMPUTATION, FINGER OR THUMB, 1?? OR 2??, ANY JOINT OR PHALANX, SINGLE, W/ FLAPS (WRVU 6.48) (Left) Anesthesia: General Findings: Left index and long finger revision amputation, left thumb wound closure Complications: None Estimated Blood Loss: 5cc Specimens removed during surgery: None Fluids: Intraprocedure Crystalloid Total None PRBCs: none (See Anesthesia Record/Report for Other Blood Products) Urine Output: (no urine output recorded) Drains: None Disposition: awakened from anesthesia, extubated and taken to the recovery room in a stable condition, having suffered no apparent untoward event. Condition: doing well without problems (Please see the Surgical Encounter Summary for any Implant and Specimen details pertinent to this patient.) Infection Bundle used? No Post-Op Plan: - Follow up in: 7-10 days with attending/Lalita/nurse - Wound Check - Suture removal: None - Dressings: remove dressings - Continue Keflex x7 days - No splint/cast needed documented in this encounter Plan of Treatment Not on file documented as of this encounter Procedures Procedure Name Priority Date/Time Associated Diagnosis Comments Amputation Finger/Thumb+Flaps (74978) Yes 12/10/2019 6:25 PM EDT Amputation of left index and long fingers AMPUTATION, FINGER OR THUMB, 1?? OR 2??, JOINT OR PHALANX, SING W/ FLAPS Routine 12/10/2019 3:41 PM EDT documented in this encounter Visit Diagnoses Not on filedocumented in this encounter Administered Medications Inactive Administered Medications - up to 3 most recent administrations Medication Order MAR Action Action Date Dose Rate Site gabapentin (Neurontin) capsule 300 mg 300 mg, Oral, ONCE, 1 dose, On Tere 12/10/19 at 1615, Administer with SIP of H2O only., Day of Surgery (Day of Procedure), Routine Given 12/10/2019 4:08 PM EDT 300 mg HYDROmorphone (DILAUDID) injection 0.2-0.4 mg 0.2-0.4 mg, Intravenous, EVERY 5 MIN PRN, Starting on Tere 12/10/19 at 1951, Until Tere 12/10/19 at 2357, Pain, Give 0.2 mg every 5 minutes PRN for mild to moderate pain (1-5) Give 0.4 mg every 5 minutes PRN for moderate to severe pain (6-10). Hold for respiratory rate less than 10 per minute. Maximum dose 4 mg over one hour. If multiple pain medications are ordered, start with hydromorphone or morphine and use fentanyl for breakthrough pain., PACU Recovery, Routine lactated ringers infusion 1,000 mL, at 100 mL/hr, Intravenous, CONTINUOUS, Starting on Tere 12/10/19 at 1615, Until Tere 12/10/19 at 2357, Day of Surgery (Day of Procedure) New Bag 12/10/2019 4:09 PM EDT 1,000 mLs 100 mL/hr lidocaine (XYLOCAINE) 10 mg/mL (1 %) injection 3 mg 3 mg (0.3 mL), Subcutaneous, ONCE PRN, 1 dose, Starting on Tere 12/10/19 at 1554, Until Tere 12/10/19 at 2357, for discomfort with PIV insertion, Day of Surgery (Day of Procedure), Routine naloxone (NARCAN) injection 0.04 mg 0.04 mg, Intravenous, EVERY 5 MIN PRN, Starting on Tere 12/10/19 at 1951, Until Tere 12/10/19 at 2357, Opioid Reversal, for respiratory rate less than 6 or unresponsive., May repeat every 5 minutes to increase respiratory rate. DO NOT exceed 0.12 mg total dose. Notify anesthesia immediately if administered., PACU Recovery, Routine ondansetron (ZOFRAN) injection 4 mg 4 mg, Intravenous, EVERY 30 MIN PRN, Starting on Tere 12/10/19 at 1951, Until Tere 12/10/19 at 2357, Nausea, May repeat 4 mg once in 30 minutes. If multiple antiemetics ordered, use ondansetron first and if ineffective use prochlorperazine second and if ineffective use promethazine, PACU Recovery Given 12/10/2019 9:07 PM EDT 4 mg prochlorperazine (COMPAZINE) injection 5 mg 5 mg, Intravenous, EVERY 30 MIN PRN, 2 doses, Starting on Tere 10 at 1951, Until Tere 12/10/19 at 2357, Nausea, May repeat 5 mg once in 30 minutes. If multiple antiemetics ordered, use ondansetron first and if ineffective use prochlorperazine second and if ineffective use promethazine, PACU Recovery, Routine sodium chloride 0.9 % (flush) flush 5-20 mL 5-20 mL, Intravenous, EVERY 1 MIN PRN, Starting on Tere 12/10/19 at 1554, Until Tere 12/10/19 at 2357, flush, Flush pertains to all indwelling lines. Flush per protocol found in the job aid using the link provided on this medication record., Day of Surgery (Day of Procedure), Routine documented in this encounter Active and Recently Administered Medications Times are shown in EDT. Scheduled Medication Order 12/08/2019 12/09/2019 12/10/2019 ceFAZolin (Ancef) 2 g in dextrose 5% 100 mL infusion (COMPLETED) 2 g, Intravenous, ONCE, 1 dose, On Tere 12/10/19 at 1615, Administer over 30 Minutes, Day of Surgery (Day of Procedure), Indication for (Active or Suspected): Prophylaxis 184 (Given - Provid er: Indio Galo CRNA) gabapentin (Neurontin) capsule 300 mg (COMPLETED) 300 mg, Oral, ONCE, 1 dose, On Tere 12/10/19 at 1615, Administer with SIP of H2O only., Day of Surgery (Day of Procedure), Routine 1608 (Given - Provid er: Elizabeth Morales RN) Continuous Medication Order 12/08/2019 12/09/2019 12/10/2019 lactated ringers infusion 1,000 mL, at 100 mL/hr, Intravenous, CONTINUOUS, Starting on Tere 10 at 1615, Until Tere 12/10/19 at 2357, Day of Surgery (Day of Procedure) 1609 (New Bag - Prov ider: Elizabeth Morales RN) PRN Medication Order 12/08/2019 12/09/2019 12/10/2019 BUpivacaine (PF) (MARCAINE) 0.25 % (2.5 mg/mL) injection (CANCELED) ONCE PRN, Starting on Tere 12/10/19 at 1856, Until Tere 12/10/19 at 2357, Intra-Operative (Intra-Procedure), Routine 1856 (Given - Provid er: Basilio Payan MD - Comment: surgical site, left hand) HYDROmorphone (DILAUDID) injection 0.2-0.4 mg 0.2-0.4 mg, Intravenous, EVERY 5 MIN PRN, Starting on Tere 10 at 1951, Until Tere 12/10/19 at 2357, Pain, Give 0.2 mg every 5 minutes PRN for mild to moderate pain (1-5) Give 0.4 mg every 5 minutes PRN for moderate to severe pain (6-10). Hold for respiratory rate less than 10 per minute. Maximum dose 4 mg over one hour. If multiple pain medications are ordered, start with hydromorphone or morphine and use fentanyl for breakthrough pain., PACU Recovery, Routine lidocaine (XYLOCAINE) 10 mg/mL (1 %) injection 3 mg 3 mg (0.3 mL), Subcutaneous, ONCE PRN, 1 dose, Starting on Tere 10 at 1554, Until Tere 12/10/19 at 2357, for discomfort with PIV insertion, Day of Surgery (Day of Procedure), Routine naloxone (NARCAN) injection 0.04 mg 0.04 mg, Intravenous, EVERY 5 MIN PRN, Starting on Tere 12/10/19 at 1951, Until Tere 12/10/19 at 2357, Opioid Reversal, for respiratory rate less than 6 or unresponsive., May repeat every 5 minutes to increase respiratory rate. DO NOT exceed 0.12 mg total dose. Notify anesthesia immediately if administered., PACU Recovery, Routine ondansetron (ZOFRAN) injection 4 mg 4 mg, Intravenous, EVERY 30 MIN PRN, Starting on Tere 10 at 1951, Until Tere 12/10/19 at 2357, Nausea, May repeat 4 mg once in 30 minutes. If multiple antiemetics ordered, use ondansetron first and if ineffective use prochlorperazine second and if ineffective use promethazine, PACU Recovery 2106 (Given - Provid er: Maribeth Valdovinos RN) prochlorperazine (COMPAZINE) injection 5 mg 5 mg, Intravenous, EVERY 30 MIN PRN, 2 doses, Starting on Tere 10 at 1951, Until Tere 12/10/19 at 2357, Nausea, May repeat 5 mg once in 30 minutes. If multiple antiemetics ordered, use ondansetron first and if ineffective use prochlorperazine second and if ineffective use promethazine, PACU Recovery, Routine sodium chloride 0.9 % (flush) flush 5-20 mL 5-20 mL, Intravenous, EVERY 1 MIN PRN, Starting on Tere 12/10/19 at 1554, Until Tere 12/10/19 at 2357, flush, Flush pertains to all indwelling lines. Flush per protocol found in the job aid using the link provided on this medication record., Day of Surgery (Day of Procedure), Routine documented in this encounter Care Teams Tutoring Manager Relationship Specialty Start Date End Date None None PCP - General 12/09/19 12/15/19 documented as of this encounter
--- OUTSIDE RECORDS SUMMARY | 2024-01-27 22:19 | XMS_ITS | Encounter Summary ---
Author Organization [facility] [place] [address] Care Team Providers Care Communication Professor Name Role Phone Fabiana Ford MD Primary Care Provider [phone] Reason for Visit * Auth/Cert Specialty Diagnoses / Procedures Referred By Contac t Referred To Contact Diagnoses wound Procedures PRO ADJ TISS XFER HEAD, FAC, HAND 10.1-30 ADJ.TISSUE TRANSFER, REARRANGEMENT, 10.1 TO 30 SQ.CM, HANDS (WRVU 10.83) Referral ID Status Reason Start Date Expiration Date Visits Re quested Visits Authorized [id number] 1 1 Encounter Details Date Type Department Care Team (Latest Contact Info) Description 01/18/2020 12:21 PM EST - 01/18/2020 3:00 PM [facility] Hospital Encounter [place] [address] Basilio Payan MD [facility] [place] [address] Discharge Disposition: Home Social History Tobacco Use [...] Sign Reading Time Taken Comments Blood Pressure 127/77 01/18/2020 2:45 PM EST Pulse 62 01/18/2020 2:45 PM EST Temperature 36 ??C (96.8 ??F) 01/18/2020 2:01 PM EST Respiratory Rate 16 01/18/2020 2:01 PM EST Oxygen Saturation 100% 01/18/2020 2:45 PM EST Inhaled Oxygen Concentration - - Weight 83.9 kg (185 lb) 01/18/2020 12:33 PM EST Height 188 cm (6' 2) 01/18/2020 12:33 PM EST Body Mass Index 23.75 01/18/2020 12:33 PM EST documented in this encounter Discharge Instructions * Discharge Instructions* Araceli Boykin RN - 01/18/2020 1:06 PM EST General Anesthesia Discharge Instructions Go home and rest. You may be sleepy for several hours. Take it easy as sudden position changes may cause nausea and/or dizziness. Use caution on stairs. Follow a light to regular diet as tolerated today. If nausea occurs, start with clear liquids, and progress slowly to a regular diet. Do not drive, operate machinery, drink alcoholic beverages or make any legal decisions after havinggeneral anesthesia. The medications given change your reaction time and alter your judgement. IV site -- slight redness is normal, you can use warm compresses. If tenderness and redness increases or foul drainage occurs, please contact your M.D. Patients who have had endotracheal tubes/LMA (tubes used by the anesthesia staff to ensure a safe airway during your operation) may have a sore throat. This is normal and cold liquids or soothing lozenges will help ease this discomfort. Narcotic pain medications can cause constipation, please ask the surgeons office what they recommend for prevention of this. Some non-pharmaceutical means of constipation prevention include increasing intake of fluids, eating more fruits and vegetables as well as fruit juices. If you are uncomfortable and/or unable to urinate within 8 hours of discharge and it is before 5 pm, call your physician. If it is after 5pm go to the closest emergency room or call the hospital pinked edge sewing machine operator at [phone] and ask for physician commercial or institutional cleaner covering for your physician. Questions or problems after 5pm or on a weekend: Call the [facility] pinked edge sewing machine operator at and ask for the physician commercial or institutional cleaner covering for your doctor. At 1:00 pm you received 1000 mg of acetaminophen- Your next dose should not be taken before 8 hourshave passed. Next dose not before- 9:00 pm You should not take more than a total of 3000 mg of acetaminophen in a 24 hour period. * Patient Instructions* Toshia [place] MD - 01/18/2020 1:05 PM EST DISCHARGE INSTRUCTIONS WOUND CARE: Keep dressing clean dry and intact. You may take off your dressing 48 hours after your surgery. You must avoid sunlight exposure to your incision(s). Do not use any over the counter ointments on the incisions postoperatively unless instructed by your provider. SHOWERING: OK to shower two days after surgery and get incisions wet. Gently wash your incisions with soap andwater. Pat dry with a clean towel. Do not submerge your surgical site under water until cleared by your provider. MEDICATIONS: You should resume your home medications. You do not need any antibiotics. ACTIVITIES: Minimize contact to affected area(s). No heavy lifting until seen by MD. No driving or operating heavy machinery when on narcotics. Keep left hand/arm elevated to decrease swelling. DIET: Regular healthy [...] larger than dime size from the incisions or drainage sites - increased swelling or pain - You notice localized swelling this could be a collection of fluid under the skin at or near the incision site. During office hours: Saturday - Saturday 8am-5pm call [phone]. On weekends or after hours call [phone] and ask the pinked edge sewing machine operator to page the plastic surgery resident commercial or institutional cleaner. PAIN MEDICATION: You were given a prescription [...] prescribed dose of your narcotic pain medication, NSAIDS may be used 48 hours after surgery with your narcotic to help [...] Saturday 8 am to 5 pm): Call [phone]. On weekends or after hours: Call [phone] and ask the pinked edge sewing machine operator to speak to the Plastic Surgery Resident on-call. FOLLOW-UP APPOINTMENTS: You follow-up appointment has been requested by not yet scheduled. You should have an appointment in 1 week. Please call [phone] if you have not received a phone call or letter with your appointment in a timely fashion. Your follow-up has been scheduled: Future Appointments Date Time Provider Department Center 01/27/2020 2:00 PM Basilio Payan MD [facility] documented in this encounter Medications at Time of Discharge Medication Sig Dispensed Refills Start Date End Date acetaminophen (Tylenol) 500 mg Tablet Take 500 mg by mouth every 6 hours as needed for Pain. ibuprofen (Advil;Motrin) 400 mg Tablet Take 400 mg by mouth every 6 hours as needed for Pain. oxyCODONE (Roxicodone) 5 mg Tablet Take 1 tablet by mouth every 4 hours as needed for Pain. 10 tablet 01/18/2020 01/27/2020 documented as of this encounter Progress Notes * Shayy Crabtree RN - 01/18/2020 2:54 PM EST Discharge instructions and medications reviewed with patient and escort. All questions answered andwritten copy sent home with patient. Patient ambulated to car for discharge accompanied by [facility] staff member. * Shayy Crabtree RN - 01/18/2020 2:35 PM EST Discharge instructions and medications reviewed with patient and Shweta. All questions answeredand written copy sent home with patient. * Ariadna Cedeño RN - 01/15/2020 2:04 PM EST During this call the patient was questioned regarding travel outside of [place] states, fever, cough, SOB or other illness in the last 14 days. Patient also questioned regarding any exposure to aCOVID positive person, a person awaiting results from testing or a person in quarantine.Patient denies any positive responses to the above questions for themselves or their escort for the day of procedure. No large gatherings. Patient informed of procedure to be followed upon arrival to the [facility]. That being, COVID questions will be asked again, temperature will be taken, patient and caregiver/personal driver will be given a mask to wear the entire time they are in the [facility] building. * Mone Hyatt RN - 01/12/2020 4:55 PM EST During this call the patient was questioned regarding travel outside of [place], fever, cough, SOB or other illness in the last 14 days. Patient also questioned regarding any exposure to aCOVID positive person, a person awaiting results from testing or a person in quarantine.Patient denies any positive responses to the above questions for themselves or their escort for the day of procedure. Patient informed of procedure to be followed upon arrival to the [facility]. That being, COVID questions will be asked again, temperature will be taken, patient and caregiver/personal driver will be given a mask to wear the entire time they are in the [facility] building. documented in this encounter H&P Notes * Basilio Payan MD - 01/18/2020 1:03 PM EST Patient Name: Yevgneiy [place] Patient Age: 34 y.o. Birthdate: 1985 Admit date: 01/18/2020 Attending Physician: Basilio Payan MD Plastic Surgery H&P HPI: Yevgeniy [place] is a 34 y.o. male here for closure of Left thumb wound s/p amputation. No changes in H&P since clinic visit. History reviewed. No pertinent past medical history. Past Surgical History: Procedure Laterality Date ??? PRO AMPUTATION FINGER/THUMB+FLAPS Left 12/10/2019 AMPUTATION, FINGER OR THUMB, 1?? OR 2??, ANY JOINT OR PHALANX, SINGLE, W/ FLAPS (WRVU 6.48) performed by Basilio Payan MD at [facility] MAIN OR Social History Socioeconomic History ??? Marital status: [...] on file Tobacco Use ??? Smoking status: Never Smoker ??? Smokeless tobacco: Never Used Substance and Sexual Activity ??? Alcohol use: Yes Comment: rare, on avg 1 a month ??? Drug use: Never ??? Sexual activity: Not on file Lifestyle ??? Physical activity Days per week: Not on file Minutes per session: Not on file ??? Stress: Not on file Relationships ??? Social connections Talks on phone: Not on file Gets together: Not on file Attends sikh service: Not on file Active member of [...] ??? Not on file No Known Allergies No current facility-administered medications on file prior to encounter. Current Outpatient Medications on File Prior to Encounter Medication Sig Dispense Refill ??? acetaminophen (Tylenol) 500 mg Tablet Take 500 mg by mouth every 6 hours as needed for Pain. ??? ibuprofen (Advil;Motrin) 400 mg Tablet Take 400 mg by mouth every 6 hours as needed for Pain. Examination: BP 133/88 Pulse 56 Temp 36.7 ??C (98.1 ??F) (Temporal) Resp 18 Ht 188 cm (6' 2) Wt 83.9 kg (185 lb) SpO2 100% BMI 23.75 kg/m?? Constitutional: No acute distress CV: RRR PUL: CTA janice Abd: soft, non-tender, non-distended Left hand: thumb with 7mm dostal ulnar wound with possible nail spike, no acute infection Impression: Yevgeniy [place] 34 y.o. male patient with Left thumb wound Plan: Left thumb wound closure with Mohberg flap. Risk, benefits, alternative, complications of the procedure to include anesthesia plan and recoverywere discussed with the patient and informed consent obtained. Basilio Payan MD documented in this encounter Miscellaneous Notes * Op Note - Basilio Payan MD - 01/18/2020 3:00 PM EST [facility] [place] Patient Name: Yevgeniy [place] : [id number] MR#: [id number] Case Date: 01/18/2020 Surgeon: Surgeon(s) and Role: * Basilio Payan MD - Primary * Toshia [place] MD - Resident Preoperative diagnosis: wound Postoperative diagnosis: wound Procedure(s) (LRB): ADJ.TISSUE TRANSFER, REARRANGEMENT, 10.1 TO 30 SQ.CM, HANDS (WRVU 10.83) (Left) Anesthesia: General Estimated Blood Loss: * No values recorded between 01/18/2020 1:28 PM and 01/18/2020 1:56 PM * Specimens removed during surgery: None Drains: * No LDAs found * Surgical Closure: Primary Closure - skin incision is completely closed without any wires, jameel, drains or other devices Disposition: awakened from anesthesia, extubated and taken to the recovery room in a stable condition, having suffered no apparent untoward event. Condition: doing well without problems (Please see the Surgical Encounter Summary for any Implant and Specimen details pertinent to this patient.) HPI/Surgical Indications: 34-year-old male status post amputations of the thumb, index, and long fingers with residual open wound at the thumb amputation site, here today for closure. Procedure Description: Risks, benefits, alternatives of closure of the left thumb wound with local flap was discussed withthe patient and informed consent obtained. He desired to proceed. The left thumb was marked for surgery. Patient was subsequent taken back to the operating room, placed supine operating table, and a general anesthetic was induced. Appropriate timeout procedures were performed. A tourniquet was placed in the patient's left upper arm. The remainder of the hand and arm were prepped and draped into the field in the normal sterile fashion. The hand and forearm were exsanguinated with use of Esmarch bandage and the tourniquet inflated to 250 mmHg. The margins of the wound were excised down to the distal phalanx. There is a question of residual nailbed on the ulnar aspect and this was excised witha 15 blade as well. Some small spicules of bone were removed with a rongeur. The wound was then copiously irrigated with saline solution. 2 longitudinal incisions on the radial and ulnar aspects of the thumb were then made in volar and dorsal skin flaps measuring approximately 3 x 2 cm elevating just beneath the neurovascular bundles was performed. This allowed the volar skin to be advanced and approximated to the dorsal skin without tension. At this point the tourniquet was let down. Hemostasis was assured. There was noted to be a nerve branch very close to the distal end of the volar skin flap which was excised. The skin was then approximated with 4-0 Chromic Gut suture. At the end the case the suture line was well approximated, skin flaps are warm pink and viable. Soft sterile dressingwas applied. He was subsequently extubated and delivered to PACU in stable condition. I was presentfor and performed the entire procedure with the resident. Infection Bundle used? No Attestation: Case Date: 01/18/2020 I was present and I participated during the entire procedure (does not need to include opening and closing). Basilio Payan MD 01/18/2020 * Brief Op Note - Toshia [place] MD - 01/18/2020 1:58 PM EST Brief Operative Note Patient Name: Yevgeniy [place] : [id number] MR#: [id number] Case Date: 01/18/2020 Surgeon: Surgeon(s) and Role: * Basilio Payan MD - Primary * Toshia [place] MD - Resident Preoperative diagnosis: wound Postoperative diagnosis: wound Procedure(s) (LRB): ADJ.TISSUE TRANSFER, REARRANGEMENT, 10.1 TO 30 SQ.CM, HANDS (WRVU 10.83) (Left) Anesthesia: General Findings: Distal tip necrosis s/p romeo (volar advancement) flap Complications: None Estimated Blood Loss: 1cc Specimens removed during surgery: * No orders in the log * Fluids: Intraprocedure Crystalloid Total None PRBCs: none [...] pertinent to this patient.) Infection Bundle used? N/A Post-Op Plan: - Follow up in: 7-10 days - Wound Check - Suture removal: None - Dressings: remove and replace, no splint - X-rays: no - OT coordinating appointments needed: none needed Future Appointments Date Time Provider Department Center 01/27/2020 2:00 PM Basilio Payan MD [facility] documented in this encounter Plan of Treatment Not on file documented as of this encounter Procedures Procedure Name Priority Date/Time Associated Diagnosis Comments Adj Tiss Transfer Head, Fac, Hand 10.1-30 ([id number]) Yes 01/18/2020 1:12 PM EST wound ADJ.TISSUE TRANSFER, REARRANGEMENT, 10.1 TO 30 SQ.CM, HANDS Routine 01/18/2020 12:25 PM EST documented in this encounter Visit Diagnoses Not on filedocumented in this encounter Administered Medications Inactive Administered Medications - up to 3 most recent administrations Medication Order MAR Action Action Date Dose Rate Site acetaminophen (Tylenol) tablet 1,000 mg 1,000 mg, Oral, ONCE, 1 dose, On Sat01/18/20 at 0845, Routine Given 01/18/2020 12:45 PM EST 1,000 mg lactated ringers infusion 1,000 mL, at 100 mL/hr, Intravenous, CONTINUOUS, Starting on Sat01/18/20 at 1245, Until Sat01/18/20 at 1705, Day of Surgery (Day of Procedure) New Bag 01/18/2020 12:57 PM EST lidocaine (XYLOCAINE) 10 mg/mL (1 %) injection 3 mg 3 mg (0.3 mL), Subcutaneous, ONCE PRN, 1 dose, Starting on Sat01/18/20 at 1228, Until Sat01/18/20 at 1705, for discomfort with PIV insertion, Day of Surgery (Day of Procedure), Routine sodium chloride 0.9 % (flush) flush 5-20 mL 5-20 mL, Intravenous, EVERY 1 MIN PRN, Starting on Sat01/18/20 at 1228, Until Sat01/18/20 at 1705, flush, Flush pertains to all indwelling lines. Flush per protocol found in the job aid using the link provided on this medication record., Day of Surgery (Day of Procedure), Routine documented in this encounter Active and Recently Administered Medications Times are shown in EST. Scheduled Medication Order 01/16/2020 01/17/2020 01/18/2020 acetaminophen (Tylenol) tablet 1,000 mg (COMPLETED) 1,000 mg, Oral, ONCE, 1 dose, On Sat01/18/20 at 0845, Routine 1245 (Given - Provid er: Araceli Boykin RN) Continuous Medication Order 01/16/2020 01/17/2020 01/18/2020 lactated ringers infusion 1,000 mL, at 100 mL/hr, Intravenous, CONTINUOUS, Starting on Sat01/18/20 at 1245, Until Sat01/18/20 at 1705, Day of Surgery (Day of Procedure) 1257 (New Bag - Prov ider: Carolyn Spence CRNA)1358 (Anesthesia Volume Adjustment - Provider: Carolyn Spence CRNA) PRN Medication Order 01/16/2020 01/17/2020 01/18/2020 BUpivacaine (PF) (Marcaine) 0.5 % (5 mg/mL) injection (CANCELED) ONCE PRN, Starting on Sat01/18/20 at 1337, Until Sat01/18/20 at 1705, Intra-Operative (Intra-Procedure), Routine 1337 (Given - Provid er: Basilio Payan MD - Comment: 5mL Bupivacaine 0.5% w. 5mL Lidocaine 1% & Epinephrine, for a total of 10 mL) lidocaine (XYLOCAINE) 10 mg/mL (1 %) injection 3 mg 3 mg (0.3 mL), Subcutaneous, ONCE PRN, 1 dose, Starting on Sat01/18/20 at 1228, Until Sat01/18/20 at 1705, for discomfort with PIV insertion, Day of Surgery (Day of Procedure), Routine lidocaine-EPINEPHrine 1 %-1:100,000 injection (CANCELED) ONCE PRN, Starting on Sat01/18/20 at 1338, Until Sat01/18/20 at 1705, Intra-Operative (Intra-Procedure), Routine 1338 (Given - Provid er: Basilio Payan MD - Comment: 5mL Bupivacaine 0.5% w. 5mL Lidocaine 1% & Epinephrine, for a total of 10 mL) sodium chloride 0.9 % (flush) flush 5-20 mL 5-20 mL, Intravenous, EVERY 1 MIN PRN, Starting on Sat01/18/20 at 1228, Until Sat01/18/20 at 1705, flush, Flush pertains to all indwelling lines. Flush per protocol found in the job aid using the link provided on this medication record., Day of Surgery (Day of Procedure), Routine No Frequency Medication Order 01/16/2020 01/17/2020 01/18/2020 ceFAZolin (Ancef) 2 gram/100 mL infusion PgBk 1 dose, Starting on Sat01/18/20 at 1302, Until Sat01/18/20 at 1705, Araceli Boykin: cabinet override 1315 (Due) scopolamine (TRANSDERM-SCOP) 1 mg over 3 days patch 1 dose, Starting on Sat01/18/20 at 1301, Until Sat01/18/20 at 1705, Araceli Boykin: cabinet override 1315 (Due) documented in this encounter Care Teams Communication Professor Relationship Specialty Start Date End Date Fabiana Ford MD [address] [place] [address] PCP - General Family Medicine 12/16/19 documented as of this encounter
--- OUTSIDE RECORDS SUMMARY | 2024-01-27 22:19 | XMS_ITS | Encounter Summary ---
Author Organization [facility] Address [facility] [place] [address] Care Team Providers Care Recreation Adviser Name Role Phone Fabiana Ford MD Primary Care Provider Reason for Referral * Occupational Therapy (Routine) - Closed Specialty Diagnoses / Procedures Referred By Leonardo avalos Referred To Contact Diagnoses Traumatic amputation of finger, subsequent encounter Basilio Payan MD [facility] [place] [address] Unknown None Referral ID Status Reason Start Date Expiration Date V isits Requested Visits Authorized [id number] Closed Evaluate and Treat Non DH PCP 12/30/2019 06/27/2020 12 12 Reason for Visit * Reason Comments Follow-up partial amp left angelito mb,index and long fingers Encounter Details Date Type Department Care Team (Late st Contact Info) Description 12/30/2019 10:45 AM EDT Office Visit Plastic Surgery at [facility] [address] [place] [address] Basilio Payan MD [facility] [place] [address] Traumatic amputation of finger, subsequent encounter Social History Tobacco Use Types Packs/Day Years Used Date Smoking Tobacco: Never Smokeless Tobacco: Never Sex and Gender Information Value Date Recorded Sex Assigned at Not on file Gender Identity Not on file Sexual Orientation Not on file documented as of this encounter Progress Notes * Basilio Payan MD - 12/30/2019 10:45 AM EDT Plastic Surgery Post Op Note Reason for visit: F/U status post procedure Date of surgery: 12/10/2019 Procedure(s): left thumb,index and long finger amputation revisions with Dr. Payan. Complications: None reported HPI: Pt returns to clinic for routine follow up s/p left thumb, index and long finger partial amputation revisions with wound closure. He is doing well. He states that has has a lot of sensitivity especially with his thumb at the ulnar side. He has noticed some areas of serous/yellow drainage. Overall thought, he has seen improvement with pain since his last visit. He has been applying a thin layer of Aquaphor to bothersome areas. Examination: There were no vitals taken for this visit. Patient is alert, conversant, comfortable, ambulating Left upper extremity Incisions: CDI, healing well. Granulation tissue noted on ulnar tip of thumb, all other digits healing well.. No collection, no erythema, no evidence of cellulitis. Impression: Yevgeniy [place] is a 34 y.o. male who was seen today for follow-up after the above procedure. Please see the operative note for details. Area of granulation tissue and hypersensitivity at ulnar thumb without infection. I went in detail what was achieved and the type of surgical techniquethat was involved. MNS Procedure: Debridement and thumb closure Timeframe: before 01/28/2020 Time allotted: 60 min CPT : Follow up: one week Plan: Follow up in 3 weeks Proceed with minor before 01/28/2020 Referral placed to outside OT ([place]) If you notice increasing erythema or edema please call our office to be seen soon. May wash over the areas with soapy water, pat dry, let air dry. May use your left hand as tolerated. IGeraldine, have performed the documentation for this encounter in the presence of and acting as a scribe for Basilio Payan MD. documented in this encounter Plan of Treatment Scheduled Referrals Name Type Priority Associated Diagnoses Order Schedule Referral to Occupational Therapy Outpatient Referral Routine Traumatic amputation of finger, subsequent encounter Ordered: 12/30/2019 documented as of this encounter Visit Diagnoses Diagnosis Traumatic amputation of finger, subsequent encounter documented in this encounter Care Teams Recreation Adviser Relationship Specialty Start Date End Date Fabiana Ford MD [address] [place] [address] PCP - General Family Medicine 12/16/19 documented as of this encounter
--- OUTSIDE RECORDS SUMMARY | 2024-01-27 22:19 | XMS_ITS | Encounter Summary ---
Author Organization [facility] Address [facility] [place] [address] Care Team Providers Care Orientation And Mobility Specialist Name Role Phone Fabiana Ford MD Primary Care Provider [phone] Encounter Details Date Type Department Care Team (Latest Contact Info) Description 05/31/2021 Travel Social History Tobacco Use Types Packs/Day Years [...] as of this encounter Plan of Treatment Not on file documented as of this encounter Visit Diagnoses Not on filedocumented in this encounter Care Teams Orientation And Mobility Specialist Relationship Specialty Start Date End Date Fabiana Ford MD [address] [place] [address] PCP - General Family Medicine 12/16/19 documented as of this encounter
--- OUTSIDE RECORDS SUMMARY | 2024-01-27 22:19 | XMS_ITS | Encounter Summary ---
[place] [address] Care Team Providers Care Motor And Generator Assembler Name Role Phone Fabiana Ford MD Primary Care Provider [phone] Encounter Details Date Type Department Care Team (Late st Contact Info) Description 12/31/2019 Telephone [place] [id number] Noelle Arndt Social History Tobacco Use Types Packs/Day Years [...] on filedocumented in this encounter Care Teams Motor And Generator Assembler Relationship Specialty Start Date End Date Fabiana Ford MD [address] [place] [address] PCP - General Family Medicine 12/16/19 documented as of this encounter
--- OUTSIDE RECORDS SUMMARY | 2024-01-27 22:19 | XMS_ITS | Encounter Summary ---
Author Organization [facility] Address [facility] [place] [address] Care Team Providers Care Caustic Operator Name Role Phone Fabiana Ford MD Primary Care Provider [phone] Reason for Visit * Reason Comments Follow-up left hand trauma Encounter Details Date Type Department Care Team (Late st Contact Info) Description 11/16/2020 9:00 AM EDT Office Visit Plastic Surgery at [facility] [address] [place] [address] Basilio Payan MD [facility] [place] [address] Surgery follow-up Social History Tobacco Use Types [...] Progress Notes * Basilio Payan MD - 11/16/2020 9:00 AM EDT Plastic Surgery Post Op Note Basilio Payan M.D. Reason for visit: F/U [...] amputation revisions and wound closure to left thumb. He is healing well but continues to have some hyper sensitivity as well some periods of edema. If he hits the areas just right this can cause pretty significant discomfort. He continues to wrap with coban as needed which can help. Examination: Patient is alert, conversant, comfortable, ambulating Incision: [...] Please see the operative note for details. Healing well, no signs or concerns for infection. Feeling of hypersensitivity and signs of bothersome neuromas. Discussed with patient that I could offer to proceed with revision and neuroma excisions. Patient will think about his options and will call should he decide to proceed with surgery. Cold intolerance should continue to improve over time. Plan: Follow up PRN. May consider lidocaine gels or Vaterian gel I, Geraldine Abad, have performed the documentation for this encounter in the presence of and acting as a scribe for Basilio Payan MD. documented in this encounter Plan of Treatment Not on file documented as of this encounter Visit Diagnoses Diagnosis Surgery follow-up Follow-up examination, following unspecified surgery documented in this encounter Care Teams Caustic Operator Relationship Specialty Start Date End Date Fabiana Ford MD [address] [place] [address] PCP - General Family Medicine 12/16/19 documented as of this encounter
--- OUTSIDE RECORDS SUMMARY | 2024-01-27 22:19 | XMS_ITS | Encounter Summary ---
Author Organization Formerly [facility], [facility]–1983 Address [facility] [place] [address] Care Team Providers Care Latex Fashions Designer Name Role Phone Fabiana Ford MD Primary Care Provider [phone] Encounter Details Date Type Department Care Team (Late st Contact Info) Description 02/25/2020 8:00 AM EST TH Visit (TeleHealth) [place] [address] Basilio Payan MD [facility] [place] [address] Surgery follow-up Social History Tobacco Use Types [...] Progress Notes * Basilio Payan MD - 02/25/2020 8:00 AM EST Plastic Surgery Post Op Note (Via telehealth) [...] reported ?? HPI: Pt returns to clinic via telehealth for follow up visit s/p surgical would closure, left thumb. Examination: Patient is alert, conversant, comfortable, ambulating Incision: CDI, healing well, fully healed. No signs or concerns for infection. No collection, minimal erythema, no evidence of cellulitis. AROM improving with 0-80 at MP index and long. Impression: Yevgeniy Bradley is a 35 y.o. male who was seen today for follow-up after the above procedure. Please see the operative note for details. Plan: Continue OT Careful of cold sensativity this winter. Briefly discussed sleeping trouble specifically early awakening and possible trauma related stress,consider discussing with PCP. IGeraldine, have performed the documentation for this encounter in the presence of and acting as a scribe for Basilio Payan MD. documented in this encounter Plan of Treatment Not on file documented as of this encounter Visit Diagnoses Diagnosis Surgery follow-up Follow-up examination, following unspecified surgery documented in this encounter Care Teams Latex Fashions Designer Relationship Specialty Start Date End Date Fabiana Ford MD [address] [place] [address] PCP - General Family Medicine 12/16/19 documented as of this encounter
--- OUTSIDE RECORDS SUMMARY | 2024-01-27 22:19 | XMS_ITS | Encounter Summary ---
Author Organization Formerly [facility] Address [facility] [place] [address] Care Team Providers Care Digital Business Analyst Name Role Phone Fabiana Ford MD Primary Care Provider [phone] Encounter Details Date Type Department Care Team (Late st Contact Info) Description 01/21/2024 4:40 PM EST Office Visit Dermatology at [facility] [address] [place] [address] Aleida Gamble MD [facility] DR [address] [place] [address] Granuloma annulare Social History Tobacco Use Types Packs/Day Years [...] as of this encounter Progress Notes * Aleida Gamble MD - 01/21/2024 4:40 PM EST Images from the original note were not included. DEPARTMENT OF DERMATOLOGY Medical Dermatology Clinic Provider: Aleida Gamble MD Patient's preferred name Yevgeniy Preferred contact method for results []Phone []myD-H []Letter Detailed phone message OK? Are there any other people with whom we may discuss your care? Past Medical History Date, location, treatment Melanoma N Dysplastic nevi N SCC N BCC N AKs UV Exposure & Protection Other relevant past medical history Family History Details Melanoma N NMSC N Other relevant family history Social History PRE-PROCEDURE SCREENING Details Allergy to lidocaine, epinephrine, Dermabond, chlorhexidine, or adhesives N Bleeding disorder or blood thinners N Pacemaker, defibrillator, deep brain stimulator, cochlear implant N History of Present Illness: Yevgeniy Bradley is a 38 y.o. Patient is new and self- referred to the clinic for white bumps on the knuckles. It began last summer on the left hand knuckles and then began on the right knuckles a few months ago. It can be painful if it gets bumped, but otherwise asymptomatic. Medications: Reviewed in eD-H Allergies: Reviewed in eD-H Skin Examination: Focused skin examination of the bilateral hands was normal with the exception of the findings below. Assessment/Plan #. 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 - Discussed diagnosis, etiology, typical distribution on acral surfaces, management options, and possibility of spontaneous resolution. - [place] decision not to treat unless lesions become bothersome. - Instructed patient to RTC if condition worsens; would consider ILK or potent topical steroid at that time - Patient will message via [facility] if he would like to trial topical steroids, such as triamcinolone. Figure 1 Photo(s) taken and charted with patient's verbal consent. Other: N/A RTC: PRN Scribe attestation: Glynn Campbell RN has performed the documentation for this encounter in the presence of and acting as a scribe for Aleida Gamble MD. I performed the above scribed service and agree with the accuracy of the documentation in this encounter. Reviewed and signed by: Aleida Gamble MD Dermatology [facility] Patient seen and evaluated with staff trimming press operator: Jessica Miranda MD Dermatology [facility] S * Jessica Miranda MD - 01/21/2024 4:40 PM EST I directly supervised Aleida Gamble MD in the care of this Dermatology patient in person. I saw and evaluated this patient with Aleida Gamble MD. Aleida Gamble MD presented the history and physical exam details to me, then we saw the patient together, and I confirmed these findings. I agree withdetails as written. My physical examination confirms Aleida Gamble MD's findings. The assessment and plan were formulated in discussion with me at the time of visit, and I agree with them as documented. Jessica Miranda MD Staff Automation Application Engineer Department of Dermatology [facility] documented in this encounter Plan of Treatment Not on file documented as of this encounter Visit Diagnoses Diagnosis Granuloma annulare Other specified erythematous condition documented in this encounter Care Teams Digital Business Analyst Relationship Specialty Start Date End Date Fabiana Ford MD [address] [place] [address] PCP - General Family Medicine 12/16/19 documented as of this encounter
--- OUTSIDE RECORDS SUMMARY | 2024-01-27 22:19 | XMS_ITS | Encounter Summary ---
Author Organization [facility] Address [facility] [place] [address] Care Team Providers Care Vault Cashier Name Role Phone Fabiana Ford MD Primary Care Provider [phone] Reason for Visit * Reason Comments Follow Up Surgery left index,long and thumb amputations Encounter Details Date Type Department Care Team (Late st Contact Info) Description 12/16/2019 8:15 AM EDT Office Visit Plastic Surgery at [facility] [address] [place] [address] Basilio Payan MD [facility] [place] [address] Traumatic amputation of finger, subsequent encounter Social History Tobacco Use Types Packs/Day Years Used Date Smoking Tobacco: Never Smokeless Tobacco: Never Sex and Gender Information Value Date Recorded Sex Assigned at Not on file Gender Identity Not on file Sexual Orientation Not on file documented as of this encounter Progress Notes * Geraldine Abad H - 12/16/2019 8:15 AM EDT Plastic Surgery Post Op Note Reason for visit: F/U status post procedure Date of surgery: 12/10/2019 Procedure(s): left thumb,index and long finger amputation revisions with Dr. Payan. Complications: None reported HPI: Pt returns for his first post operative follow up s/p left thumb, index and long finger partial amputation revisions with wound closure. He complains of intermediate pain mostly to the thumb. Hehas been having trouble sleeping. Examination: There were no vitals taken for this visit. Patient is alert, conversant, comfortable, ambulating Left upper extremity Incision: CDI, healing well. Some eschar present to the thumb, all other areas are healing well. No collection, no erythema, no evidence of cellulitis. Impression: Yevgeniy Bradley is a 34 y.o. male who was seen today for follow-up after the above procedure. Please see the operative note for details. Overall healing well but is experiencing nerve hypersensitivity. I reassured patient that overtime his symptoms will improve and his hypersensitivity should decrease. Discussed with patient that I would recommend proceeding with a short course of gabapentin to help with his nerve sensitivity. Sutures are dissolvable, discussed with patient that he may proceed with gentle finger movements. Not focusing on strengthening at this time. He will need to see OT in the future to help with his strengthening and nerve sensory re- eduction. We talked briefly about prosthetics. In addition, I shared with patient to expect cold sensitivity during the colder weather. Plan: Follow up in 2 weeks Prescription for Gabapentin, take at night (may take twice a day as needed) Can take Tylenol, Ibuprofen or Oxycodone to control your pain. May get the hand wet, wash over area with soapy water, pat dry, let air dry. No submerging at this time. Apply adaptic over the areas and cover with guaze Geraldine Wan, have performed the documentation for this encounter in the presence of and acting as a scribe for Basilio Payan MD. documented in this encounter Plan of Treatment Not on file documented as of this encounter Visit Diagnoses Diagnosis Traumatic amputation of finger, subsequent encounter documented in this encounter Care Teams Vault Cashier Relationship Specialty Start Date End Date Fabiana Ford MD [address] [place] [address] PCP - General Family Medicine 12/16/19 documented as of this encounter
--- OUTSIDE RECORDS SUMMARY | 2024-01-27 22:19 | XMS_ITS | Encounter Summary ---
Author Organization [facility] Address [facility] [place] [address] Care Team Providers Care Volleyball Coach Name Role Phone None Primary Care Provider Unavailabl e Encounter Details Date Type Department Care Team (Late st Contact Info) Description 12/10/2019 6:00 PM EDT - 12/10/2019 7:28 PM EDT Surgery [place] [id number] Basilio Payan MD [facility] [place] [address] AMPUTATION, FINGER OR THUMB, 1?? OR 2??, ANY JOINT OR PHALANX, SINGLE, W/ FLAPS (WRVU 6.48) Social History Tobacco Use Types Packs/Day Years Used Date Smoking Tobacco: Never Assessed Sex and Gender Information Value Date Recorded Sex Assigned at Not on file Gender Identity Not on file Sexual Orientation Not on file documented as of this encounter Last Filed Vital Signs Vital Sign Reading Time Taken Comments Blood Pressure 148/79 12/10/2019 3:54 PM EDT Pulse 54 12/10/2019 3:54 PM EDT Temperature 36.4 ??C (97.5 ??F) 12/10/2019 3:54 PM ED T Respiratory Rate 18 12/10/2019 3:54 PM EDT Oxygen Saturation 100% 12/10/2019 3:54 PM EDT Inhaled Oxygen Concentration - - [...] office hours: Saturday - Saturday 8am-5pm call [phone]. On weekends or after hours call [phone] and ask the mud tank operator to page the plastic surgery resident conversion developer. PAIN MEDICATION: You were given a prescription [...] Saturday 8 am to 5 pm): Call [phone]. On weekends or after hours: Call [phone] and ask the mud tank operator to speak to the Plastic Surgery Resident on-call. FOLLOW-UP APPOINTMENTS: You follow-up appointment has been requested by not yet scheduled. You should have an appointment in 7-10 days in plastic surgery clinic. Please call [phone] if you have not received a phone [...] file Gets together: Not on file Attends confucianist service: Not on file Active member of [...] Payan MD - 12/10/2019 9:55 PM EDT [facility] [place] Patient Name: Yevgeniy Bradley : [id number] MR#: [id number] Case Date: 12/10/2019 Surgeon: Surgeon(s) and Role: [...] Operative Note Patient Name: Yevgeniy Bradley : [id number] MR#: [id number] Case Date: 12/10/2019 Surgeon: Surgeon(s) and Role: [...] Priority Date/Time Associated Diagnosis Comments Amputation Finger/Thumb+Flaps (94766) Yes 12/10/2019 6:25 PM EDT Amputation of left index and long fingers AMPUTATION, FINGER OR THUMB, 1?? OR 2??, JOINT OR PHALANX, SING W/ FLAPS Routine 12/10/2019 3:41 PM EDT documented in this encounter Visit Diagnoses Not on filedocumented in this encounter Administered Medications Inactive Administered Medications - up to 3 most recent administrations Medication Order MAR Action Action Date Dose Rate Site BUpivacaine (PF) (MARCAINE) 0.25 % (2.5 mg/mL) injection ONCE PRN, Starting on Tere 12/10/19 at 1856, Until Tere 12/10/19 at 2357, Intra-Operative (Intra-Procedure), Routine Given 12/10/2019 6:56 PM EDT 10 mLs 20-Other (document in comment section) gabapentin (Neurontin) capsule 300 mg 300 mg, [...] MIN PRN, 2 doses, Starting on Tere 12/10/19 at 1951, Until [...] Procedure), Indication for (Active or Suspected): Prophylaxis 1840 (Given - Provid er: Indio Galo CRNA) [...] Elizabeth Morales RN) PRN Medication Order 12/08/2019 12/09/201912/10/2019 BUpivacaine (PF) (MARCAINE) 0.25 % (2.5 mg/mL) injection (CANCELED) ONCE PRN, Starting on Tere 12/10/19 at 1856, Until Tere 12/10/19 at 2357, Intra-Operative (Intra-Procedure), Routine 1856 (Given - Provid er: Basilio Payan MD - Comment: surgical site, left hand) HYDROmorphone (DILAUDID) injection 0.2-0.4 mg 0.2-0.4 mg, Intravenous, EVERY 5 MIN PRN, Starting on Etre 12/10/19 at 1951, Until Tere 12/10/19 at [...] and if ineffective use promethazine, PACU Recovery 2107 (Given - Provid er: Maribeth Valdovinos RN) prochlorperazine (COMPAZINE) injection 5 mg 5 mg, Intravenous, EVERY 30 MIN PRN, 2 doses, Starting on Tere 12/10/19 at 1951, Until [...] Routine documented in this encounter Care Teams Volleyball Coach Relationship Specialty Start Date End Date None None PCP - General 12/09/19 12/15/19 documented as of this encounter
--- OUTSIDE RECORDS SUMMARY | 2024-01-27 22:19 | XMS_ITS | Encounter Summary ---
Author Organization [facility] Address [address] [place] [address] Care Team Providers Care Heading Machine Operator Name Role Phone Unavailable Primary Care Provider Unavailabl e Encounter Details Date Type Department Care Team (Latest Contact Info) Description 01/05/2006 8:38 EDT - 01/05/2006 11:59 EDT Hospital Encounter [facility] Emergency Department - [facility] [address] [place] [address] Emergency, Default, MD Discharge Disposition: Home or Self Care Social History Tobacco Use Types Packs/Day Years Used Date Smoking Tobacco: Never Assessed Sex and Gender Information Value Date Recorded Sex Assigned at Not on file Legal Sex Male 18:20 EST Gender Identity Not on file Sexual Orientation Not on file documented as of this encounter Discharge Disposition Disposition Code Departure Means Destination Home or Self Care documented in this encounter Plan of Treatment Not on file documented as of this encounter Visit Diagnoses Not on filedocumented in this encounter
--- OUTSIDE RECORDS SUMMARY | 2024-01-27 22:19 | XMS_ITS | Encounter Summary ---
Author Organization [facility] [place] [address] Care Team Providers Care Laborer Pipeline Name Role Phone Fabiana Ford MD Primary Care Provider [phone] Encounter Details Date Type Department Care Team (Late st Contact Info) Description 12/19/2019 Tele[place] [id number] Araceli Hunt MD [facility] [place] [place] [address] Social History Tobacco Use Types Packs/Day Years [...] on filedocumented in this encounter Care Teams Laborer Pipeline Relationship Specialty Start Date End Date Fabiana Ford MD [address] [place] [address] PCP - General Family Medicine 12/16/19 documented as of this encounter
--- OUTSIDE RECORDS SUMMARY | 2024-01-27 22:19 | XMS_ITS | Encounter Summary ---
Author Organization [facility] Address [facility] [place] [address] Care Team Providers Care Firmware Developer Name Role Phone Fabiana Ford MD Primary Care Provider [phone] Reason for Visit * Reason Comments Follow Up Surgery s/p left index and t humb amputation - residual wound, possible infection Encounter Details Date Type Department Care Team (Late st Contact Info) Description 12/28/2020 3:30 PM EDT Office Visit Plastic Surgery at [address] [address] Basilio Payan MD [facility] [place] [place] [address] Surgery follow-up Social History Tobacco Use Types [...] Progress Notes * Basilio Payan MD - 12/28/2020 3:30 PM EDT Plastic Surgery Post Op Note Basilio [...] revisions and wound closure to left thumb. Here with concerns for infection. Examination: (From last visit) Patient is alert, conversant, comfortable, ambulating Thumb ulnar tip area of drainage (white, cheesy material) of what sounds to be epidermal cyst. Now pain significantly improved, no mass palpated, no erythema, no SOI, small 2mm opening with pink granulating base. Impression: Yevgeniy Bradley is a 35 y.o. male who was seen today for follow-up after the above procedure. Please see the operative note for details. No signs or concerns for active infection but did have what sounds to be formation of an epidermal cyst on the left thumb which has since drained. He does have 2mm opening to the area which should have no problem healing on its own. Plan: Follow up DEE Wan, Geraldine Abad, have performed the documentation for this encounter in the presence of and acting as a scribe for Basilio Payan MD. documented in this encounter Plan of Treatment Not on file documented as of this encounter Visit Diagnoses Diagnosis Surgery follow-up Follow-up examination, following unspecified surgery documented in this encounter Care Teams Firmware Developer Relationship Specialty Start Date End Date Fabiana Ford MD [address] [place] [address] PCP - General Family Medicine 12/16/19 documented as of this encounter
--- OUTSIDE RECORDS SUMMARY | 2024-01-27 22:19 | XMS_ITS | Encounter Summary ---
Author Organization [facility] Address [facility] [place] [address] Care Team Providers Care Loading Unit Operator Powder Charging Name Role Phone Fabiana Ford MD Primary Care Provider [phone] Reason for Visit * Reason Comments Follow Up Surgery left thumb debridmen t Encounter Details Date Type Department Care Team (Late st Contact Info) Description 01/27/2020 2:00 PM EST Office Visit Plastic Surgery at [facility] [address] [place] [address] Basilio Payan MD [facility] [place] [address] Surgery follow-up Social History Tobacco Use Types [...] Progress Notes * Geraldine Abad H - 01/27/2020 2:00 PM EST Plastic Surgery Post Op Note Reason for visit: F/U status post procedure Date of surgery: 01/18/2020 Procedure(s): residual open wound at the thumb closure with Dr. Payan Complications: None reported Reason for visit: F/U status post procedure Date of surgery: 12/10/2019 Procedure(s): left thumb,index and long finger amputation revisions with Dr. Payan. Complications: None reported ?? HPI: Pt returns to clinic for his first follow up visit s/p surgical would closure, left thumb. He is doing well. He states that has has been having some discharge from his thumb but this has since improved. Pain is under control. Examination: There were no vitals taken for this visit. Patient is alert, conversant, comfortable, ambulating Incision: CDI, healing well, small 1mm area of scabbing. No signs or concerns for infection. No collection, minimal erythema, no evidence of cellulitis. Impression: Yevgeniy Bradley is a 34 y.o. male who was seen today for follow-up after the above procedure. Please see the operative note for details. Healing well, no signs or concerns for infection. Sutures are dissolvable. Some of these could take about 3 months to dissolvable. May proceed with OT closer to home. Plan: Follow up: [address] Payan May being to slowly start bending fingers . I, Geraldine Abad, have performed the documentation for this encounter in the presence of and acting as a scribe for Basilio Payan MD. documented in this encounter Plan of Treatment Not on file documented as of this encounter Visit Diagnoses Diagnosis Surgery follow-up Follow-up examination, following unspecified surgery documented in this encounter Care Teams Loading Unit Operator Powder Charging Relationship Specialty Start Date End Date Fabiana Ford MD [address] [place] [address] PCP - General Family Medicine 12/16/19 documented as of this encounter
--- OUTSIDE RECORDS SUMMARY | 2024-01-27 22:19 | XMS_ITS | Encounter Summary ---
Author Organization [facility] Address [address] [place] [address] Care Team Providers Care Automatic Nailing Machine Operator Name Role Phone Unavailable Primary Care Provider Unavailabl e Encounter Details Date Type Department Care Team (Latest Contact Info) Description 12/29/1998 10:34 EDT - 12/29/1998 11:59 EDT Hospital Encounter [facility] [place] [address] [place] [address] Chad Sebastian MD [address] [place] [phone] Discharge Disposition: Auto Discharge Social History Tobacco Use Types Packs/Day Years Used Date Smoking Tobacco: Never Assessed Sex and Gender Information Value Date Recorded Sex Assigned at Not on file Legal Sex Male 18:20 EST Gender Identity Not on file Sexual Orientation Not on file documented as of this encounter Discharge Disposition Disposition Code Departure Means Destination Auto Discharge documented in this encounter Plan of Treatment Not on file documented as of this encounter Visit Diagnoses Not on filedocumented in this encounter
--- OUTSIDE RECORDS SUMMARY | 2024-01-27 22:19 | XMS_ITS | Encounter Summary ---
[place] [address] Care Team Providers Care Lock Tender Name Role Phone Fabiana Ford MD Primary Care Provider [phone] Encounter Details Date Type Department Care Team (Late st Contact Info) Description 12/21/2019 Telephone [place] [phone] Samia Orellana Social History Tobacco Use Types Packs/Day Years [...] on filedocumented in this encounter Care Teams Lock Tender Relationship Specialty Start Date End Date Fabiana Ford MD [address] [place] [address] PCP - General Family Medicine 12/16/19 documented as of this encounter
--- OUTSIDE RECORDS SUMMARY | 2024-01-27 22:19 | XMS_ITS | Encounter Summary ---
Author Organization [facility] Address [facility] [place] [address] Care Team Providers Care Modeler Name Role Phone Fabiana Ford MD Primary Care Provider [phone] Reason for Visit * Reason Comments Follow Up Surgery Left thumb cyst aliyah krysta Encounter Details Date Type Department Care Team (Late st Contact Info) Description 05/31/2021 8:30 AM EDT Office Visit Plastic Surgery at [facility] [address] [place] [address] Basilio Payan MD [facility] [place] [address] Surgery follow-up Social History Tobacco Use Types [...] Progress Notes * Basilio Payan MD - 05/31/2021 8:30 AM EDT Plastic Surgery Post Op Note Provider: Basilio Payan M.D. Date of surgery: Procedure(s): Excision of cyst, left thumb Complications: None reported Date of surgery: 01/18/2020 Procedure(s): residual open wound at the thumb closure with Dr. Payan Complications: None reported ?? Reason for visit: F/U status post procedure Date of surgery:??12/10/2019 Procedure(s):??left thumb,index and long finger??amputation??revisions with Dr. Payan. Complications: None reported HPI: Pt returns to clinic for his first post operative follow up s/p excision of cyst, left thumb. Healing well. No concerns. Examination: There were no vitals taken for this visit. Patient is alert, conversant, comfortable, ambulating Incision: CDI, healing well. No collection, no erythema, no evidence of cellulitis. Expectantly tender to palpation Pathology: 05/25/21 left thumb, excision: Follicular cyst, ruptured Impression: Yevgeniy Bradley is a 36 y.o. male who was seen today for follow-up after the above procedure. Please see the operative note for details. Healing well, no signs or concerns for infection. Discussed with patient that his path report indicated ruptured follicular cyst. Plan: Follow up: PRN Over the next few weeks while recovering continue to limited heavier activities. IGeraldine, have performed the documentation for this encounter in the presence of and acting as a scribe for Basilio Payan MD. documented in this encounter Plan of Treatment Not on file documented as of this encounter Visit Diagnoses Diagnosis Surgery follow-up Follow-up examination, following unspecified surgery documented in this encounter Care Teams Modeler Relationship Specialty Start Date End Date Fabiana Ford MD [address] [place] [address] PCP - General Family Medicine 12/16/19 documented as of this encounter
--- OUTSIDE RECORDS SUMMARY | 2024-01-27 22:19 | XMS_ITS | Encounter Summary ---
Author Organization [facility] Address [address] [place] [address] Care Team Providers Care Wafer Polisher Name Role Phone Eliseo Dominguez MD Primary Care Provider Unavailabl e Encounter Details Date Type Department Care Team (Late st Contact Info) Description 11/05/2022 Lab Requisition [facility] Pathology & Laboratory Medicine - [facility] [address] [place] [address] Outr Resulting Lab, Provider Social History Tobacco Use Types Packs/Day Years [...] Procedure Name Priority Date/Time Associated Diagnosis Comments LYME AB Routine 11/05/2022 9:19 EDT documented in this encounter Results * LYME AB (11/05/2022 9:19 EDT) Lyme Ab Negative Negative 11/06/2022 10:53 EDT [facility] Blood VENOUS BLOOD / Unknown 11/05/2022 9:19 EDT 11/05/2022 21:17 EDT us Provider Outr Resulting Lab IMMUNOLOGY AND SEROL OGY ORDERABLES Final Result [facility] [address] [place] [address] documented in this encounter Visit Diagnoses Not on filedocumented in this encounter Care Teams Wafer Polisher Relationship Specialty Start Date End Date Eliseo Dominguez MD PCP - General 01/16/15 documented as of this encounter
--- OUTSIDE RECORDS SUMMARY | 2024-01-27 22:19 | XMS_ITS | Encounter Summary ---
Author Organization [facility] [place] [address] Care Team Providers Care Radio Repairer Domestic Name Role Phone Fabiana Ford MD Primary Care Provider [phone] Encounter Details Date Type Department Care Team (Late st Contact Info) Description 06/22/2020 Orders [place] [address] Basilio Payan MD [facility] [place] [address] Traumatic amputation of finger, subsequent encounter Social [...] encounter documented in this encounter Care Teams Radio Repairer Domestic Relationship Specialty Start Date End Date Fabiana Ford MD [address] [place] [address] PCP - General Family Medicine 12/16/19 documented as of this encounter
--- OUTSIDE RECORDS SUMMARY | 2024-01-27 22:19 | XMS_ITS | Encounter Summary ---
Author Organization [facility] Address [facility] [place] [address] Care Team Providers Care Direct Support Specialist Name Role Phone Fabiana Ford MD Primary Care Provider [phone] Encounter Details Date Type Department Care Team (Latest Contact Info) Description 05/18/2021 Travel Social History Tobacco Use Types Packs/Day [...] on filedocumented in this encounter Care Teams Direct Support Specialist Relationship Specialty Start Date End Date Fabiana Ford MD [address] [place] [address] PCP - General Family Medicine 12/16/19 documented as of this encounter
--- OUTSIDE RECORDS SUMMARY | 2024-01-27 22:19 | XMS_ITS | Encounter Summary ---
Author Organization [facility] [place] [address] Care Team Providers Care Coldfusion Name Role Phone Fabiana Ford MD Primary Care Provider [phone] Encounter Details Date Type Department Care Team (Late st Contact Info) Description 10/12/2021 Orders [place] [address] Basilio Payan MD [facility] [place] [address] Traumatic amputation of finger, subsequent encounter Social [...] encounter documented in this encounter Care Teams Coldfusion Relationship Specialty Start Date End Date Fabiana Ford MD [address] [place] [address] PCP - General Family Medicine 12/16/19 documented as of this encounter
--- OUTSIDE RECORDS SUMMARY | 2024-01-27 22:19 | XMS_ITS | Clinical Summary ---
Author Organization [facility] Address [facility] [place] [address] Care Team Providers Care Marine Engine Machinist Name Role Phone Fabiana Ford MD Primary Care Provider [phone] Allergies No known active allergies Medications Medication Sig Dispensed Refills Start Date End Date Status acetaminophen (Tylenol) 500 mg Tablet Take 500 mg by mouth every 6 hours as needed for Pain. Active ibuprofen (Advil;Motrin) 400 mg Tablet Take 400 mg by mouth every 6 hours as needed for Pain. Active Active Problems No known active problems Encounters Date Type Department Care Team Description 01/21/2024 4:40 PM EST Office Visit Dermatology at [facility] [address] [place] [phone] Aleida Gamble MD [facility] 01/21/2024 Travel from Last 3 Months Social History Tobacco Use Types Packs/Day Years Used Date Smoking Tobacco: Never Smokeless Tobacco: Never Alcohol Use Standard Drinks/Week Comments Yes 0 (1 standard drink = 0.6 oz pur e alcohol) rare, on avg 1 a month Sex and Gender Information Value Date Recorded Sex Assigned at Not on file Gender Identity Not on file Sexual Orientation Not on file Last Filed Vital Signs Vital Sign Reading [...] Mass Index 23.75 01/18/2020 12:33 PM EST Plan of Treatment Health Maintenance Due Date Last Done Comments HIV screen 2003 Hepatitis C Screening 2003 Lipid Screening 2003 Hepatitis B vaccine (0-59 yrs) (1) 02/05/2004 Tetanus/Diphtheria/Pertussis Vaccines (1 - Tdap) 02/04 Covid-19 Vaccine (1 - 2023- season) 2023 Influenza (Flu) vaccine (1 o f 1 - Influenza standard series) 11/10/2023 Advance Directives * Attempt Cardiopulmonary Resuscitation - Inpatient (Latest Code Status on File) Date Activated Date Inactivated Comments 12/10/2019 3:56 PM 12/11/2019 12:02 AM Question Answer Comments Code Status decision made by: Patient Care Teams Marine Engine Machinist Relationship Specialty Start Date End Date Fabiana Ford MD [address] [place] [address] PCP - General Family Medicine 12/16/19
--- OUTSIDE RECORDS SUMMARY | 2024-01-27 22:19 | XMS_ITS | Referral Summary ---
Author Organization [facility] Address [address] [place] [address] Care Team Providers Care Banquet Prep Cook Name Role Phone Eliseo Dominguez MD Primary Care Provider Unavailabl e Social History Tobacco Use Types Packs/Day Years Used Date Smoking Tobacco: Never Assessed Sex and Gender Information Value Date Recorded Sex Assigned at Not on file Legal Sex Male 18:20 EST Gender Identity Not on file Sexual Orientation Not on file Plan of Treatment Not on file Care Teams Banquet Prep Cook Relationship Specialty Start Date End Date Eliseo Dominguez MD PCP - General 01/16/15
--- OUTSIDE RECORDS SUMMARY | 2024-01-27 22:19 | XMS_ITS | Encounter Summary ---
Author Organization [facility] Address [facility] [place] [address] Care Team Providers Care Workers' Compensation Hearings Officer Name Role Phone Fabiana Ford MD Primary Care Provider [phone] Reason for Visit * Surgical (Routine) - Closed Specialty Diagnoses / Procedures Referred By Leonardo avalos Referred To Contact Plastic Surgery Diagnoses cyst on thumb discuss options Procedures PROCEDURE Self mail Basilio Payan MD [facility] [place] [address] Referral ID Status Reason Start Date Expiration Date V isits Requested Visits Authorized [id number] Closed Surgical 05/25/2021 05/25/2022 5 5 Encounter Details Date Type Department Care Team (Latest Contact Info) Description 05/25/2021 4:00 PM EDT Procedure [place] [address] Basilio Payan MD [facility] [place] [address] Traumatic amputation of finger, subsequent encounter; Mass of skin of left thumb Social History Tobacco Use Types Packs/Day Years [...] on file documented as of this encounter Patient Instructions * Patient Instructions* Ladonna Owen RMA - 05/25/2021 3:42 PM EDT The healing process is different for each person / and or procedure. You can expect some discomfort. There will also be swelling and possible bruising that will subsidein the next few days or weeks. Note that your pain, swelling, bruising and drainage are directly related to activity. Dressing: Keep your incision/dressing dry 2 days. You may shower after this time, but do not soak in a pool or bath until completely healed. Sutures: Your sutures are absorbable and do not need to be removed. Spitting Sutures : Occasionally an area of redness & tenderness develops where a dissolving stitch becomes irritated & pushed to the surface. This stitch is clear or white & looks like fish line. If it occurs, it is not an emergency. You may clip the stitch or call the clinic for an appointment with the nurse. If bleeding occurs which soaks through the outside bandage, apply firm, direct pressure with your hand over the bandage for 15 minutes. Activity Restrictions: To minimize swelling,pain, & bleeding follow these instructions: Hand Surgery: Keep the affected hand elevated above the heart for the next 2-7 days. Do not lift with or strain the hand. Do not wash dishes or soak in a tub of water. Keep surgery site elevated as much as possible for several days. Protect your incision from the sun for at least 6 months. Medication: Take regular or extra strength Tylenol as directed. Avoid Ibuprofen and Aspirin for 48 hours. Problems to report to your doctor: . A Temperature over 100 F or 38 C. . Excessive redness or warmth spreading away from the incision line after the first 48 hours. . Thick, yellow, foul smelling drainage larger than a dime from the incision or drain site. . Increased pain that is not relieved by you pain medicine. Contact Your Doctor: . During Office Hours: Saturday through Saturday from 8am - 5pm Call . On weekends or after office hours:Call and ask the sling operator to page the plastic surgeon purification operator helper. . Prescription Line: Call the line at from 8am-4pm Saturday through Saturday. documented in this encounter Procedure Notes * Ladonna Owen RMA - 05/25/2021 4:00 PM EDT Plastic Surgery Minor Worksheet Surgery: Left thumb mass removal Skin Prep: Chlorhaprep Cautery Unit: MNS 1 [id number] Biplar Settings: Coa Cuttin Bipolar Tornicot Site: Left thumb Xylocaine w/epi 1:200,000: 6.0 cc Prescription: none Post op instructions: See AVS * Basilio Payan MD - 05/25/2021 4:00 PM EDTAssociated Order(s): EXCISION BENIGN SCALP,NECK,HANDS,FEET,GEN (MSO) Pre-Procedure Diagnose(s): Traumatic amputation of finger, subsequent encounter Procedure Note Plastic Surgery Procedure: Excision lesion 1 cm with layered closure 1 cm Depth: Subcutaneous Anatomic Location: L thumb Pre-op diagnosis: L thumb mass s/p amputation Consent: Written from patient after discussion of risks and benefits. I have reviewed the risks, benefits and alternatives to the surgical management of excision of lesion including infection, bleeding, recurrence, nerve injury, identification of malignancy need for treatment with steroids and scar revision. All issues were discussed and the patients understanding this wishes to proceed. Physicians: Basilio Payan M.D. Anesthesia: Local with lidocaine 1% with epi Description: After anesthesia was provided via digital block, the site was prepped and draped in sterile fashion. A finger tourniquet was placed on the thumb. A 1cm ellipse encompassing the dermal mass was incised and the underlying lobulated mass excised from the tissues. The wound was then irrigated and closed with 4-0 chromic mattress sutures. Specimens: to path Complications: none immediate EBL: 3 cc Disposition: Pt. tolerated the procedure well. After the procedure, the patient was discharged home. documented in this encounter Plan of Treatment Not on file documented as of this encounter Procedures Procedure Name Priority Date/Time Associated Diagnosis Comments SPECIMEN TO PATHOLOGY Routine 05/25/2021 4:17 PM EDT Mass of skin of left thumb SURGICAL PATHOLOGY REPORT Routine 05/25/2021 4:09 PM EDT EXCISION BENIGN SCALP,NECK,HANDS,FE ET,GEN (MSO) Routine 05/25/2021 4:00 PM EDT Traumatic amputation of finger, subsequent encounter documented in this encounter Results * Specimen to Pathology (05/25/2021 4:17 PM EDT) AP Specimen 05/25/2021 4:17 PM EDT 05/25/2021 4:17 PM EDT Narrative [facility] - 05/25/2021 4:17 PM EDT Specimen requisition ordered. ??Separate Pathology report to follow Basilio Payan MD PATHOLOGY/CYTOLOGY ORDERABLES [facility] [place] [address] * Surgical Pathology Report (05/25/2021 4:09 PM EDT) Final Diagnosis [id number] ? Location: 4M The signing pathologist has (i) examined the relevant preparation(s) for the specimen(s) and (ii) rendered or confirmed the diagnosis(es). . ?Surgical Pathology DIAGNOSIS A - left thumb, excision: ?Follicular cyst, ruptured. Electronically signed by: ?Basilio Jimenez MD Verified: ??05/29/2021 10:44 ??Pathologist Performed at: ??-[facility] [place] Dept. of Pathology, [place], [place] SPECIMEN(S) SUBMITTED A - left thumb, excision (1) CLINICAL INFORMATION Mass SPECIMEN PROCESSING A - Labeled/Fixative : Left thumb mass, formalin. Quantity/Size: ??Single, 1.6 x 1.4 x 0.4 cm. Tissue Description: Excision of izquierdo-pink skin with underlying rubbery subcutaneous tissue. On section, surfaces are fibrous, izquierdo-white Sections/Process ing: Inked and entirely submitted in 2 cassettes as follows: ?A1: ??tips ?A2: ??body ??pps 05/29/2021 10:44 AM EDT [facility] SOFT TISSUE MASS / Unknown 05/25/2021 4:09 PM EDT 05/25/2021 4:09 PM EDT Basilio Payan MD PATHOLOGY/CYTOLOGY ORDERABLES [facility] [place] [address] * Exc Shankar Les(Scalp/nck/hand/ft/gen(MSO) (05/25/2021 4:00 PM EDT) Narrative Basilio Payan MD - 05/25/2021 4:00 PM EDT Basilio Payan MD ? 05/25/2021 ??4:32 PM Procedure Note Plastic Surgery Procedure: Excision lesion 1 cm with layered closure 1 cm Depth: Subcutaneous Anatomic Location: L thumb Pre-op diagnosis: L thumb mass s/p amputation Consent: Written from patient after discussion of risks and benefits. I have reviewed the risks, benefits and alternatives to the surgical management of excision of lesion including infection, bleeding, recurrence, nerve injury, identification of malignancy need for treatment with steroids and scar revision. All issues were discussed and the patients understanding this wishes to proceed. Physicians: Basilio Payan M.D. Anesthesia: Local with lidocaine 1% with epi Description: After anesthesia was provided via digital block, the site was prepped and draped in sterile fashion. ??A finger tourniquet was placed on the thumb. ??A 1cm ellipse encompassing the dermal mass was incised and the underlying lobulated mass excised from the tissues. ??The wound was then irrigated and closed with 4-0 chromic mattress sutures. Specimens: to path Complications: none immediate EBL: 3 cc Disposition: Pt. tolerated the procedure well. After the procedure, the patient was discharged home. Basilio Payan MD DERM PROCEDURE CAESAR CESAR documented in this encounter Visit Diagnoses Diagnosis Traumatic amputation of finger, subsequent encounter Mass of skin of left thumb documented in this encounter Care Teams Workers' Compensation Hearings Officer Relationship Specialty Start Date End Date Fabiana Ford MD [address] [place] [address] PCP - General Family Medicine 12/16/19 documented as of this encounter
--- OUTSIDE RECORDS SUMMARY | 2024-01-27 22:19 | XMS_ITS | Encounter Summary ---
Author Organization [facility] Address [facility] [place] [address] Care Team Providers Care Crop And Soil Scientist Name Role Phone Fabiana Ford MD Primary Care Provider [phone] Reason for Visit * Reason Comments Follow-up Encounter Details Date Type Department Care Team (Late st Contact Info) Description 05/18/2021 8:30 AM EST Office [place] [address] Basilio Payan MD [facility] [place] [address] Surgery follow-up Social History Tobacco Use Types [...] this encounter Patient Instructions * Patient Instructions* Gabriella Langford RN - 05/18/2021 8:26 AM EST Minor Room Procedure Instructions You were given written and verbal preoperative instructions today. If you are a smoker, we ask that you stop at least 2 months prior to your surgical date and remain nicotine free for at least a month after surgery. Smoking can impair healing and increase your chance of infection. To prepare for your upcoming procedure: Two weeks prior to surgery You do not need to stop any aspirin or ibuprofen containing products prior to surgery. One week prior to surgery Please call if you feel ill, have cold or fever, have a rash or breaks in skin near your surgical site. Stay hydrated. Three days before surgery Do not shave near your surgical site One day before surgery Hand Surgery - Scrub your hand with an antibacterial soap for several minutes the night before and morning of surgery. Trim your fingernails and scrub them with a nail brush. DO NOT wear any rings, nail croatian or artifical nails. Day of Procedure A utility driver is recommended but not required. There are No dietary restrictions. You may eat and drink up until the time of your procedure. DO NOT wear any jewelry, makeup or artificial nails. DO NOT apply any lotions, powders or deodorants near or at surgical site. Do wear comfortable, loose fitting clothes. You will be awake during this procedure. The Surgeon will inject the area of your procedure with a local anesthetic. This will sting/burn. During the procedure, you will have a sensation of pressure but not pain. If you are having hand surgery, a tight cuff may be put on the surgical arm to help prevent bleeding. After your procedure, you will be given written and verbal instructions on how to care for your surgical site. Contact Information: During regular office hours (Saturday- Saturday, non-holiday 8:00 am- 5:00 pm) For an appointment or insurance questions For questions pertaining to your surgical date [phone] For nursing related questions [phone] On weekends, holidays or after office hours: Call [phone] and ask the deflash and wash operator to page the Plastic Surgery Resident call person. documented in this encounter Progress Notes * Basilio Payan MD - 05/18/2021 8:30 AM EST Plastic Surgery Post Op Note Basilio Payan [...] to clinic for a follow up visit to discuss concerns for a reoccurrence of epidermalcyst located at the radial tip of his left thumb. He would like to have this surgically excised. Examination: Patient is alert, conversant, comfortable, ambulating Thumb: closed amputation, swelling under skin at radial distal tip c/w cyst, no puncta, no drainage. . Impression: Yevgeniy Bradley is a 36 y.o. male with reoccurance of epidermal cyst,at the ulnar tip ofleft thumb. Reasonable to have excised. Plan to excise in minor. MNS Procedure: Excision of cyst, left thumb Timeframe: next available Time allotted: 60 min CPT: 88891 Follow up: one week post surgery Plan: Proceed with excision of cyst One week follow up post op I, Geraldine Abad, have performed the documentation for this encounter in the presence of and acting as a scribe for Basilio aPyan MD. documented in this encounter Plan of Treatment Not on file documented as of this encounter Visit Diagnoses Diagnosis Surgery follow-up Follow-up examination, following unspecified surgery documented in this encounter Care Teams Crop And Soil Scientist Relationship Specialty Start Date End Date Fabiana Ford MD [address] [place] [address] PCP - General Family Medicine 12/16/19 documented as of this encounter
--- OUTSIDE RECORDS SUMMARY | 2024-01-27 22:19 | XMS_ITS | Encounter Summary ---
Author Organization [facility] [place] [address] Care Team Providers Care Supervisor Underwriting Clerks Name Role Phone None Primary Care Provider Unavailabl e Encounter Details Date Type Department Care Team (Late st Contact Info) Description 12/10/2019 6:23 PM EDT Anesthesia Event [place] [id number] Dayday Crow MD [facility] DR [place] [address] James Cooper, [facility] [place] [address] Anesthesia Record Procedure Summary Procedure Name Responsible Anesthesiologist Anesthesia Start Time Anesthesia Stop Time AMPUTATION, FINGER OR THUMB, 1?? OR 2??, ANY JOINT OR PHALANX, SINGLE, W/ FLAPS (WRVU 6.48) (Left: Finger) Dayday Crow MD 12/10/19182212/10/191945 Events Date Time Event Comment 12/10/2019 182 182 Start 1825 AN Verify 1825 An Start Data 1829 An Induction 1830 An Intubation 1834 Anesthesia Ready 1937 Extubation/LMA Out 1938 an stop data 1943 Recovery or ICU Handoff Odalis ent care was transferred to the destination unit staff after review of the patient's medical history, current anesthetic/surgical status and plan, according to the Provider Handoff Checklist. 1946 Stop Meds Name Total Propofol 200 mg fentaNYL 100 mcg Midazolam 2 mg Dexamethasone 8 mg Ondansetron 8 mg ceFAZolin (Ancef) 2 g in dextrose 5% 100 mL infusion 2 g lactated ringers infusion 0 mL * Agents Name O2 Air N2O Sevoflurane (et) * Blood No blood administrations on file. Lines, Drains, and Airways Type Details Placement Removal (RETIRED) Peripheral IV Line - Single Lumen 12/10/19; 1607; median cubital vein (antecubital fossa), right; usrq-acp-fshshp catheter system; 22 gauge; 12/14/20 (LDA Cleanup utility RA#2611); 165 (LDA Cleanup utility RA#2611) 12/10/19 1607 by Elizabeth Morales RN 12/14/20 1650 by Bebo Silva Supraglottic Mask Ventilation: Ea sy (1); LMA Type: iGel; LMA Size: 4; Inserted by: Clover MONTGOMERY; Removal Date: 12/10/19; Removal Time: 193712/10/19 183 by Indio Galo, MANAGER MATH 12/10/19 1938 by Indio Galo, MANAGER MATH Incision 12/10/19; 1845; hand (first, second and third finger, ); 11/06/21 (LDA cleanup utility RA#2746); 1715 (LDA cleanup utility RA#2746) 12/10/19 1845 by Bisi Lombardi RN 11/06/21 1715 by Amna Torres documented in this encounter Social History Tobacco Use Types Packs/Day Years Used Date Smoking Tobacco: Never Assessed Sex and Gender Information Value Date Recorded Sex Assigned at Not on file Gender Identity Not on file Sexual Orientation Not on file documented as of this encounter OR Notes * Anesthesia Postprocedure Evaluation - Dayday Crow MD - 12/11/2019 2:07 PM EDT Department of Anesthesiology Post-procedure Note Patient: Yevgeniy Bradley Procedure Summary Date: 12/10/19 Room / [facility]: [facility] Anesthesia Start: 1822 Anesthesia Stop: 1945 Procedure: AMPUTATION, FINGER OR THUMB, 1?? 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 Patient Location: PACU/[facility] Level of Consciousness: Awake and Alert Pain Management: Satisfactory Analgesia PONV: None Cardiovascular Status: At Baseline and Hemodynamically Stable Respiratory Status: At Baseline and Room Air Postoperative Fluid Status: Intravascular EUvolemia Possible Anesthetic Complications: NONE apparent at time of evaluation Final Primary Anesthesia Type: General (The anesthetic type performed was the same as planned.) Comments: Dayday Crow MD * Anesthesia Preprocedure Evaluation - Dayday Crow MD - 12/09/2019 8:33 PM EDT Pre-Anesthesia Evaluation for: Yevgeniy Bradley a 34 y.o. male. Procedure(s): AMPUTATION, FINGER OR THUMB, 1?? OR 2??, ANY JOINT OR PHALANX, SINGLE, W/ FLAPS (WRVU 6.48) There are no active problems to display for this patient. No past medical history on file. No past surgical history on file. Social History Tobacco Use ??? Smoking status: Not on file Substance Use Topics ??? Alcohol use: Not [...] with a(n) intravenous induction 34 y.o. 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 Medical History: None listed Surgical History: None listed Anesthetic History: No known history of anesthesia complications. No airway records in eDH Allergies reviewed Labs reviewed NPO Status: --- Appropriately NPO Anesthetic Plan: GA w/ ETT/LMA Standard ASA monitoring PIV access Daphnie Jaime MD 12/09/2019 Region - Other Informed Consent: Anesthetic plan and risks discussed with patient. Use of blood products discussed with patient who consented to blood products. Plan discussed with attending and MANAGER MATH. PAT Clinic Note documented in this encounter Miscellaneous Notes * Addendum Note - Dayday Crow MD - 12/11/2019 2:07 PM EDT Addendum created 12/11/19 1407 by Dayday Crow MD Clinical Note Signed documented in this encounter Plan of Treatment Not on file documented as of this encounter Visit Diagnoses Not on filedocumented in this encounter Administered Medications Inactive Administered Medications - up to 3 most recent administrations Medication Order MAR Action Action Date Dose Rate Site ceFAZolin (Ancef) 2 g in dextrose 5% 100 mL infusion 2 g, Intravenous, ONCE, 1 dose, On Tere 12/10/19 at 1615, Administer over 30 Minutes, Day of Surgery (Day of Procedure), Indication for (Active or Suspected): Prophylaxis Given 12/10/2019 6:40 PM EDT 2 g dexamethasone (Decadron) injection Intravenous, PRN, Starting on Tere 12/10/19 at 1842, Until Tere 12/10/19 at 1946, Anesthesia Intra-op, Routine Given 12/10/2019 6:42 PM EDT 8 mg fentaNYL 50 mcg/mL multi-dose injection Intravenous, PRN, Starting on Tere 12/10/19 at 1835, Until Etre 12/10/19 at 1946, Anesthesia Intra-op, Routine Given 12/10/2019 6:35 PM EDT 100 mcg midazolam (PF) (VERSED) multi-dose injection Intravenous, PRN, Starting on Tere 12/10/19 at 1824, Until Tere 12/10/19 at 1946, Anesthesia Intra-op, Routine Given 12/10/2019 6:24 PM EDT 2 mg ondansetron (ZOFRAN) injection Intravenous, PRN, Starting on Tere 12/10/19 at 1842, Until Tere 12/10/19 at 1946, Anesthesia Intra-op, Routine Given 12/10/2019 6:42 PM EDT 8 mg propofoL (Diprivan) 10 mg/mL bolus injection (Anesthesia) Intravenous, PRN, Starting on Tere 12/10/19 at 1830, Until Tere 12/10/19 at 1946, Anesthesia Intra-op Given 12/10/2019 6:30 PM EDT 200 mg documented in this encounter Care Teams Supervisor Underwriting Clerks Relationship Specialty Start Date End Date None None PCP - General 12/09/19 12/15/19 documented as of this encounter
--- OUTSIDE RECORDS SUMMARY | 2024-01-27 22:19 | XMS_ITS | Encounter Summary ---
Author Organization [facility] [place] [address] Care Team Providers Care Embroidery Patternmaker Name Role Phone Fabiana Ford MD Primary Care Provider [phone] Reason for Visit * Auth/Cert Specialty Diagnoses / Procedures Referred By Contac t Referred To Contact Diagnoses wound Procedures PRO ADJ TISS XFER HEAD, FAC, HAND 10.1-30 ADJ.TISSUE TRANSFER, REARRANGEMENT, 10.1 TO 30 SQ.CM, HANDS (WRVU 10.83) Referral ID Status Reason Start Date Expiration Date Visits Re quested Visits Authorized [id number] 1 1 Encounter Details Date Type Department Care Team (Late st Contact Info) Description 01/18/2020 1:35 PM EST - 01/18/2020 2:55 PM EST Surgery [place] [place] [address] Basilio Payan MD [facility] [place] [address] ADJ.TISSUE TRANSFER, REARRANGEMENT, 10.1 TO 30 SQ.CM, HANDS (WRVU 10.83) Social History Tobacco Use Types Packs/Day Years [...] closest emergency room or call the hospital under cutting machine operator at [phone] and ask for physician stationary equipment mechanic covering for your physician. Questions or problems after 5pm or on a weekend: Call the [facility] under cutting machine operator at and ask for the physician stationary equipment mechanic covering for your doctor. At 1:00 pm [...] office hours: Saturday - Saturday 8am-5pm call [phone]. On weekends or after hours call [phone] and ask the under cutting machine operator to page the plastic surgery resident stationary equipment mechanic. PAIN MEDICATION: You were given a prescription [...] Saturday 8 am to 5 pm): Call [phone]. On weekends or after hours: Call [phone] and ask the under cutting machine operator to speak to the Plastic Surgery Resident on-call. FOLLOW-UP APPOINTMENTS: You follow-up appointment has been requested by not yet scheduled. You should have an appointment in 1 week. Please call [phone] if you have not received a phone call or letter with your appointment in a timely fashion. Your follow-up has been scheduled: Future Appointments Date Time Provider Department Center 01/27/2020 2:00 PM Basilio Payan MD [facility] documented in this encounter Medications at Time [...] patient was questioned regarding travel outside of [place] states, fever, cough, SOB or other illness [...] again, temperature will be taken, patient and caregiver/otr company truck driver will be given a mask to wear the entire time they are in the [facility] building. * Mone Hyatt RN - 01/12/2020 4:55 PM EST During this call the patient was questioned regarding travel outside of [place], fever, cough, SOB or other illness [...] again, temperature will be taken, patient and caregiver/otr company truck driver will be given a mask to wear the entire time they are in the [facility] building. documented in this encounter H&P Notes * Basilio Payan MD - 01/18/2020 1:03 PM EST Patient Name: Yevgeniy Bradley Patient Age: 34 [...] performed by Basilio Payan MD at [facility] Social History Socioeconomic History ??? [...] file Gets together: Not on file Attends jainism service: Not on file Active member of [...] Payan MD - 01/18/2020 3:00 PM EST [facility] [place] [place] Operative Note Patient Name: Yevgeniy Bradley : [id number] MR#: [id number] Case Date: 01/18/2020 Surgeon: Surgeon(s) and Role: [...] Operative Note Patient Name: Yevgeniy Bradley : [id number] MR#: [id number] Case Date: 01/18/2020 Surgeon: Surgeon(s) and Role: [...] Center 01/27/2020 2:00 PM Basilio Payan MD [facility] documented in this encounter Plan of Treatment Not on file documented as of this encounter Procedures Procedure Name Priority Date/Time Associated Diagnosis Comments Adj Tiss Transfer Head, Fac, Hand 10.1-30 (31436) Yes 01/18/2020 1:12 PM EST wound ADJ.TISSUE [...] Given 01/18/2020 12:45 PM EST 1,000 mg BUpivacaine (PF) (Marcaine) 0.5 % (5 mg/mL) injection ONCE PRN, Starting on Sat01/18/20 at 1337, Until Sat01/18/20 at 1705, Intra-Operative (Intra-Procedure), Routine Given 01/18/2020 1:37 PM EST 5 mLs 19- Surgical Site lactated ringers infusion 1,000 mL, at 100 [...] of Procedure), Routine lidocaine-EPINEPHrine 1 %-1:100,000 injection ONCE PRN, Starting on Sat01/18/20 at 1338, Until Sat01/18/20 at 1705, Intra-Operative (Intra-Procedure), Routine Given 01/18/2020 1:38 PM EST 5 mLs 19- Surgical Site sodium chloride 0.9 % (flush) flush 5-20 [...] (Due) documented in this encounter Care Teams Embroidery Patternmaker Relationship Specialty Start Date End Date Fabiana Ford MD [address] [place] [address] PCP - General Family Medicine 12/16/19 documented as of this encounter
--- OUTSIDE RECORDS SUMMARY | 2024-01-27 22:19 | XMS_ITS | Encounter Summary ---
Author Organization [facility] [place] [address] Care Team Providers Care Boat Oar Maker Name Role Phone Fabiana Ford MD Primary Care Provider [phone] Encounter Details Date Type Department Care Team (Late st Contact Info) Description 12/31/2019 Tele[place] [phone] Geraldine Abad Social History Tobacco Use Types Packs/Day Years Used Date Smoking Tobacco: Never Smokeless Tobacco: Never Sex and Gender Information Value Date Recorded Sex Assigned at Not on file Gender Identity Not on file Sexual Orientation Not on file documented as of this encounter Miscellaneous Notes * Telephone Encounter - Geraldine Abad - 12/31/2019 8:27 AM EDT I am unable to reach patient. Patient doesn't have VM set up. We need to schedule him for a minor procedure debridement and thumb closure. Dr. Payan has time on 01/12/2020. (60min) I have sent a message to the patient via [employer]. Please also ask what facility in [facility] does he want to have OT so we can fax external referral. documented in this encounter Plan of Treatment Not on file documented as of this encounter Visit Diagnoses Not on filedocumented in this encounter Care Teams Boat Oar Maker Relationship Specialty Start Date End Date Fabiana Ford MD [address] [place] [address] PCP - General Family Medicine 12/16/19 documented as of this encounter
--- OUTSIDE RECORDS SUMMARY | 2024-01-27 22:19 | XMS_ITS | Encounter Summary ---
Author Organization [facility] [place] [address] Care Team Providers Care Customer Success Associate Name Role Phone Fabiana Ford MD Primary Care Provider [phone] Reason for Referral * Occupational Therapy (Routine) - Closed Specialty Diagnoses / Procedures Referred By Leonardo avalos Referred To Contact Occupational Therapy Diagnoses Traumatic amputation of finger, subsequent encounter coordinate with Plastics Basilio Payan MD [facility] [address] [facility] [place] [address] Referral ID Status Reason Start Date Expiration Date V isits Requested Visits Authorized [id number] Closed Evaluate and Treat 01/01/2020 12/31/2020 12 12 Encounter Details Date Type Department Care Team (Late st Contact Info) Description 01/01/2020 Orders [place] [phone] Basilio Payan MD [facility] [address] Traumatic amputation of finger, subsequent encounter Social [...] Traumatic amputation of finger, subsequent encounter Ordered: 01/01/2020 documented as of this encounter Visit Diagnoses Diagnosis Traumatic amputation of finger, subsequent encounter documented in this encounter Care Teams Customer Success Associate Relationship Specialty Start Date End Date Fabiana Ford MD [address] [place] [address] PCP - General Family Medicine 12/16/19 documented as of this encounter
--- OUTSIDE RECORDS SUMMARY | 2024-01-27 22:19 | XMS_ITS | Encounter Summary ---
Author Organization [facility] Address [address] [place] [address] Care Team Providers Care Agency Development Manager Name Role Phone Unavailable Primary Care Provider Unavailabl e Encounter Details Date Type Department Care Team (Latest Contact Info) Description 06/03/2000 12:40 EST Hospital Encounter [facility] [address] [place] [address] Chad Sebastian MD [address] [place] [phone] Discharge Disposition: Auto Discharge Social History [...]
--- OUTSIDE RECORDS SUMMARY | 2024-01-27 22:19 | XMS_ITS | Encounter Summary ---
Author Organization [facility] Address [facility] [place] [address] Care Team Providers Care De Icer Finisher Name Role Phone Fabiana Ford MD Primary Care Provider [phone] Reason for Visit * Reason Comments Follow-up left hand amputation s of thumb,ring and long fingers Encounter Details Date Type Department Care Team (Late st Contact Info) Description 06/15/2020 8:30 AM EDT Office Visit Plastic Surgery at [address] [place] [address] Basilio Payan MD [facility] [place] [address] Surgery follow-up Social History Tobacco Use Types [...] Progress Notes * Basilio Payan MD - 06/15/2020 8:30 AM EDT Plastic Surgery Post Op [...] revisions and wound closure to left thumb. Healing well, but continues to have edema mostly at night and has been experiencing tingling sensations to his fingers not so much the hand. He continues with compression using coban but finds it difficult to obtain the right amount of pressure. Since his surgery, he has been able to return to most activities but has had to make certain accommodations to help with his finger length discrepancy. He has been thinking a bit more about finger prosthetics. Examination: Patient is alert, conversant, comfortable, ambulating Incision: CDI, healed well, fully healed. No signs or concerns for infection. No collection, minimal erythema, no evidence of cellulitis. AROM now full of remaining digits. No tinel's at tips, good tolerance to pressure. Impression: Yevgeniy Bradley is a 35 y.o. male who was seen today for follow-up after the above procedure. Please see the operative note for details. 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 Discussed in detail what this exactly means and reassured patient that this should improve over time but can1-2 year from injury to achieve before seeing full improvement. Hypersensitivity is common and can continue for long periods of time as well. May consider a custom compression glove in the future but for now he will continue to use the coban. Will reach out to Sherri Hernadez to discuss finger prosthetic options. Plan: Talk to Sherri Hernadez about finger prosthetics Follow up in 6 months telehealth. IGeraldine, have performed the documentation for this encounter in the presence of and acting as a scribe for Basilio Payan MD. documented in this encounter Plan of Treatment Not on file documented as of this encounter Visit Diagnoses Diagnosis Surgery follow-up Follow-up examination, following unspecified surgery documented in this encounter Care Teams De Icer Finisher Relationship Specialty Start Date End Date Fabiana Ford MD [address] [place] [id number] PCP - General Family Medicine 12/16/19 documented as of this encounter
--- OUTSIDE RECORDS SUMMARY | 2024-01-27 22:19 | XMS_ITS | Clinical Summary ---
Author Organization [facility] Address [address] [place] [address] Care Team Providers Care Economic Manager Name Role Phone Eliseo Dominguez MD Primary Care Provider Unavailabl e Social History Tobacco Use Types Packs/Day Years Used Date Smoking Tobacco: Never Assessed Sex and Gender Information Value Date Recorded Sex Assigned at Not on file Legal Sex Male 18:20 EST Gender Identity Not on file Sexual Orientation Not on file Plan of Treatment Health Maintenance Due Date Last Done Comments Hepatitis C Screen 1985 Hepatitis B Vaccine (1 of 3 - 19+ 3-dose series) 02/04 COVID-19 Vaccine ( season) 2023 Care Teams Economic Manager Relationship Specialty Start Date End Date Eliseo Dominguez MD PCP - General 01/16/15
--- OUTSIDE RECORDS SUMMARY | 2024-01-27 22:19 | XMS_ITS | Encounter Summary ---
Author Organization [facility] Address [facility] [place] [address] Care Team Providers Care Inter Fold Roll Cutter Name Role Phone Fabiana Ford MD Primary Care Provider [phone] Encounter Details Date Type Department Care Team (Latest Contact Info) Description 01/21/2024 Travel Social History Tobacco Use Types Packs/Day [...] on filedocumented in this encounter Care Teams Inter Fold Roll Cutter Relationship Specialty Start Date End Date Fabiana Ford MD [address] [place] [address] PCP - General Family Medicine 12/16/19 documented as of this encounter
--- NOTE | 2024-01-27 22:36 | ED.GENADUL_ITS ---
Discharge Plan Disposition Patient Disposition: Home Condition: Good Discharge Details Clinical Impression: Cellulitis Primary Care Provider: Fabiana Ford ED Provider: Lacey Ahmadi Home Meds and New Rx's Prescriptions: New cephalexin 500 mg capsule 500 mg PO .[id number] Qty: 16 0RF Discontinued lisinopril 5 mg tablet 5 mg PO DAILY Patient Comments: TAKE ONE TABLET BY MOUTH EVERY DAY Discharge Instructions Instructions: Cellulitis (Skin Infection), Adult ED Additional Instructions: Cephalexin every 6 hours for the next 5 days. Keep the area clean and dry. Ok to shower, do not soak. Return to the emergency department for new or worsening symptoms including worsening pain, fever, thick green or white discharge, numbness in your foot, or if you have any other concerns. HPI General Mode of arrival: ambulatory . Date/Time Provider Initiated Documentation: 01/27/24 22:11 . Limitations to Documentation: no limitations . Information obtained by: patient . HPI Narrative: 38yo previously healthy male presenting with redness to top of left foot. About 10 days ago noted a pruritic lesion (? bug bite) which he scratched, breaking the scan. It seemed to slowly go away and then yesterday he began to have redness and swelling in the same area with a small bump. Not pruritic, but is painful to the touch. Otherwise in his usual state of health. Related Data Home Medications ?Medication ?Instructions ?Recorded ?Confirmed cephalexin 500 mg capsule 500 mg PO .[id number] #16 caps 01/27/24 Previous Rx's ?Medication ?Instructions ?Recorded cephalexin 500 mg capsule 500 mg PO .[id number] #16 caps 01/27/24 Allergies Allergy/AdvReac Type Severity Reaction Status Date / Time No Known Allergies Allergy Verified 01/27/24 22:23 General Stated Complaint: Cellulitis ANTONIO: 4 Review of Systems Narrative: see HPI Exam Narrative Exam Narrative: General: Alert, well appearing, well nourished, in no acute distress. Head: Normocephalic, atraumatic Neck: Trachea midline, ?Neck supple. Cardiac: ?No cyanosis. Resp: No respiratory distress. Speaking in full sentences. Abd: ?Nn-distended, Extremities: ?No peripheral edema. Top of left foot with ~0.25cm area of erythema tenderness and swelling, no clear induration or fluctance, with ~3cm surrounding erythema with no tenderness or swelling. Punctate central dark area ? splinter vs necrosis. Sensation intact throughout L foot, +DP pulse. Neurologic: GCS 15. ? Moves all extremities freely against gravity Course Vital Signs Vital signs: Vital Signs Temperature 37.1 C 01/27/24 22:19 Pulse 55 L 01/27/24 22:19 Respiratory Rate 16 01/27/24 22:19 Blood Pressure 138/84 01/27/24 22:19 Pulse Oximetry 99 01/27/24 22:19 Temperature 37.1 C 01/27/24 22:19 Temperature Source Temporal Artery Scan 01/27/24 22:19 Pulse 55 L 01/27/24 22:19 Respiratory Rate 16 01/27/24 22:19 Respiratory Effort Normal 01/27/24 22:24 Blood Pressure 138/84 01/27/24 22:19 Pulse Oximetry 99 01/27/24 22:19 Pain Level 4 01/27/24 22:19 Procedures Foreign Body Removal Time Out Performed: yes Site: left Description of foreign body: other (possible splinter) Sedation/Analgesia: other (local) Technique: other (no FB identified) Complications: none Post-procedure exam: awake, alert Neurovascular: normal distal pulse and distal light touch sensation intact Medical Decision Making 38yo previously healthy male presenting with redness to top of left foot. About 10 days ago noted a pruritic lesion (? bug bite) which he scratched, breaking the scan. It seemed to slowly go away and then yesterday he began to have redness and swelling in the same area with a small bump. Systemically well. Reassuring vital signs on arrival, well appearing on exam. Top of left foot with ~0.25cm area of erythema tenderness and swelling, no clear induration or fluctance, with ~3cm surrounding erythema with no tenderness or swelling. Punctate central dark area ? splinter vs necrosis. Cellulitis with ? splinter. Not septic. No suggestive of MRSA, or deep infection. No indication for labs for XR imaging. Anesthetized with 1% lidocaine locally and incised; no foreign body identified. Will discharge on 5 day course of keflex for cellulitis. Discharge instructions and reutrn precautions were reviewed with patient who verbalized understanding. All questions were answered and he is in full agreement with the plan. Quality:SDOH Health Related Social Needs: No Data to Display [facility] All Active Problems (Updated 01/27/24 @ 22:46 by Lacey Ahmadi MD) Cellulitis (Acute) Femoroacetabular impingement of right hip (Acute) Right hip pain (Acute) Medical History (Updated 01/27/24 @ 22:46 by Lacey Ahmadi MD) Thrombosed external hemorrhoid Surgical History (Updated 09/06/17 @ 10:54 by Vania Lopes MD) Incision & Drainage, Abscess or Hematoma thrombosed hemorrhoid Social History Smoking/Tobacco Use Status: Never Smoking risk assessment performed?: Yes Drug use: Never Substance use type: does not use Do you feel safe at home: Yes Do you feel safe in your relationship?: Yes
[2024-01-27] MEDS: Cephalexin 500 MG CAP, 4 CAPS/BTL PO (22:59)
[2024-01-27] MEDS: Cephalexin 500 MG CAP PO (22:59)
== END 2024-01-27 23:03 | disposition home or self-care (01) ==
PROVIDERS: Emergency Provider Student in an Organized Health Care Education/Training Program; PCP Family Medicine
DX: L03.116 Cellulitis of left lower limb (principal)
CPT/HCPCS: 99283

== ENCOUNTER 2024-07-21 10:52 | Outpatient (CLI) | payer BC, SELFPAY ==
--- NOTE | 2024-07-21 08:45 | DI.RAD_ITS ---
Exam(s) XR ANKLE RT COMPLETE EXAM: XR ANKLE RT COMPLETE CLINICAL HISTORY: RIGHT ANKLE PAIN. TECHNIQUE: 2D digital imaging was performed of the right ankle. Three images were obtained. AP, la teral and oblique views were obtained. COMPARISON: CR XR STANDING ALIGNMENT from 11/12/2023 FINDINGS: BONES: No acute fracture is present. No bony destructive lesion is seen. JOINTS: The ankle mortise is normally aligned. The articular surfaces are well maintained. There is no evidence of a osteochondral defect in the talar dome. SOFT TISSUE: Normal. IMPRESSION: Unremarkable radiographs of the right ankle. DATA REPOSITORY: RADIATION DOSE DELIVERED:
== END 2024-07-21 10:53 | disposition home or self-care (01) ==
LOC: DIORS 10:52
PROVIDERS: PCP Family Medicine; Visit Provider Student in an Organized Health Care Education/Training Program
DX: M25.571 Pain in right ankle and joints of right foot (principal); S93.401A Sprain of unspecified ligament of right ankle, initial encounter; W51.XXXA Accidental striking against or bumped into by another person, initial encounter; Y93.67 Activity, basketball
CPT/HCPCS: 99213; 73610

== ENCOUNTER 2025-01-05 11:47 | Outpatient (REF) | payer BC, SELFPAY ==
[2025-01-05 15:29] LABS: ALT 21 U/L (16-63); AST 22 U/L (15-37); Albumin 4.2 g/dL (3.4-5.0); Alkaline Phosphatase 67 U/L (46-116); Anion Gap 6.3 mmol/L (3-11); BUN 14 mg/dL (7-18); Bilirubin, Total 0.9 mg/dL (0.2-1.0); CO2 30.7 mmol/L (21.0-32.0); Calcium 9.2 mg/dL (8.5-10.1); Calculated LDL 136 mg/dL (<100); Chloride 102 mmol/L (98-107); Cholesterol 205 mg/dL (<200); Estimated GFR 111.42 (mL/min/1.73m2); Glucose 94 mg/dL (74-106); HDL Cholesterol 61 mg/dL (>or=40); Potassium 4.5 mmol/L (3.5-5.1); Sodium 139 mmol/L (136-145); Total Protein 7.6 g/dL (6.4-8.2); Triglyceride 42 mg/dL (<150); Vitamin D 25 Total 34 ng/mL (30-100)
== END 2025-01-05 11:48 | disposition home or self-care (01) ==
LOC: NCHCN 11:47
PROVIDERS: PCP Family Medicine; Visit Provider Family Medicine
DX: I10 Essential (primary) hypertension (principal); E55.9 Vitamin D deficiency, unspecified; Z13.220 Encounter for screening for lipoid disorders
CPT/HCPCS: 80053; 80061; 82306